=== PATIENT | male | born 1960 | race Caucasian/White ===

== ENCOUNTER 2024-04-07 09:15 | Emergency (ER) | payer MEDICARE, SELFPAY ==
[2024-04-07 09:24] VITALS: BP 135/79; PULSE 75; RESP 16; TEMP 36.1; O2SAT 95
--- NOTE | 2024-04-07 09:32 | ED.DENTAL ---
HPI - Dental/Oral General Chief complaint: Dental/Oral Stated complaint: Abscessed Tooth History of Present Illness HPI Narrative: Pt is a 64-year-old male who presents to urgent care with tooth pain. He reports his pain started two days and has progressively worsened. Pt endorses pain on the R gum/tooth in the back of his lower jaw and says his back 4th tooth (#29) is cracked. He denies any drainage, sore throat or fevers, but reports increased swelling in his mouth and on his R lower mandible. Pt reports he's been taking Ibuprofen 800mg PO for pain, which he reports has not helped relieve his pain. He currently does not have a dentist, as he is switching medical insurance companies. Pt endorses a history of high blood pressure, asthma and (cigar) tobacco use, but denies history of diabetes or CHF. Related Data Allergies Allergy/AdvReac Type Severity Reaction Status Date / Time Tetanus Vaccines and Toxoid Allergy Mild unknown Verified 04/07/24 09:28 tetanus and diphtheria Allergy Unknown unknown Verified 02/11/24 11:16 toxoids Review of Systems Review of Systems: All systems reviewed & are unremarkable except as noted in HPI and below PMFSH Past Medical History Medical History Asthma Social History Social History Smoking status: Former smoker Alcohol intake: never Do You Feel Safe in your Home?: Yes Lack of Transportation: YES Lack of Food: Never True Current Housing: I Have Housing Concerned About Future Housing: No Difficulty Paying Gas/Electric Bills: No Difficulty Paying for Meds: No Currently Unemployed: No Education: High School Diploma/GED Difficulty w/ Childcare or Family Care: No Exam Const: General: healthy appearing Nutritional Appearance: obese Orientation/consciousness: patient oriented x3 Limitations: no limitations HENMT: Head: normal to inspection Ears: external ears normal Face/Nose/Sinus: Normal external nose present Face and sinus: normal facial exam Mouth: Yes moist mucous membranes Teeth and gingiva: abnormal tooth and associated gingiva Throat: posterior oropharynx normal and uvula midline Other: Pt's R lower mandible is edematous and he endorses pain with palpation. There is mild redness and swelling on the inside of his R lower gums. Cracked tooth is not visible, nor is it loose with palpation. No visible drainage. Eyes: Conjunctivae: conjunctivae normal Direct Ophthalmoscopy: no photophobia Neck: Neck: normal visual inspection, no lymphadenopathy and no meningeal signs Chest: Chest palpation & inspection: normal inspection of the chest Resp: Effort & Inspection: normal respiratory effort Cardio: Rate: regular rate Rhythm: regular rhythm GI: Auscultation: normal bowel sounds Skin: General skin exam: normal color Rashes: no rashes Neuro: General: patient oriented x3 and moves all extremities Extrem: General: normal to inspection Psych: Mental Status: mental status grossly normal Course Course Level of Care: Express Care Visit Vital Signs Vital signs: Vital Signs Temperature 36.1 C L 04/07/24 09:24 Pulse Rate 75 04/07/24 09:24 Respiratory Rate 16 04/07/24 09:24 Blood Pressure 135/79 04/07/24 09:24 Pulse Oximetry 95 04/07/24 09:24 Temperature 36.1 C L 04/07/24 09:24 Pulse Rate 75 04/07/24 09:24 Respiratory Rate 16 04/07/24 09:24 Blood Pressure 135/79 04/07/24 09:24 Pulse Oximetry 95 04/07/24 09:24 MDM - Dental/Oral MDM Narrative Medical decision making narrative: Pt is a 64-year-old male who presents to urgent care with tooth pain. He reports his pain started two days and has progressively worsened. Pt endorses pain on the R gum/tooth in the back of his lower jaw and says his back 4th tooth (#29) is cracked. He denies any drainage, sore throat or fevers, but reports increased swelling in his mouth and on his R lower mandible. Pt reports he's been taking Ibuprofen 800mg PO for pain, which he reports has not helped relieve his pain. He currently does not have a dentist, as he is switching medical insurance companies. Pt endorses a history of high blood pressure, asthma and (cigar) tobacco use, but denies history of diabetes or CHF. Pt will be discharged home with a prescription for Clindamycin x 7 days and viscous lidocaine. Pt encouraged to continue using Ibuprofen OTC for pain as needed. He should establish care with a dentist as soon as possible. Pt verbalized understanding and is in agreement with plan. He should follow-up with his PCP if symptoms do not improve. Differential Diagnosis Differential diagnosis: Likely gingival abscess, dental caries, toothache, dental abscess and fracture of tooth Discharge Plan Discharge Clinical Impression: Dental abscess, Fracture of tooth Patient Disposition: Home, Self-Care Condition: Stable Instructions: Antibiotic Form, Dental Abscess (ED) Additional Instructions: Please present to the ER with worsening symptoms. Take all medications as prescribed. Please follow-up with your PCP in the next couple of days to ensure your infection is healing. Set up an appointment with a dentist as soon as possible. Prescriptions: New lidocaine HCl [Lidocaine Viscous] 2 % solution 1 applic mucous membrane QID PRN (Reason: tooth pain) Qty: 300 0RF clindamycin HCl 300 mg capsule 300 mg PO BID Qty: 14 0RF clindamycin HCl 300 mg capsule 300 mg PO BID Qty: 14 0RF lidocaine HCl [Lidocaine Viscous] 2 % solution 1 applic mucous membrane QID PRN (Reason: dental pain) Qty: 300 0RF clindamycin HCl 300 mg capsule 300 mg PO BID Qty: 14 0RF lidocaine HCl [Lidocaine Viscous] 2 % solution 1 applic mucous membrane QID PRN (Reason: pain) Qty: 300 0RF No Action clotrimazole-betamethasone 1-0.05 % cream See Rx Instructions .ROUTE .COMPLEX Qty: 45 0RF Rx Instructions: apply by topical route 2 times everyday for 2 weeks to the affected and surrounding areas of skin in am and evening; fluticasone propionate [Flonase Allergy Relief] 50 mcg/actuation spray,suspension 1 - 2 spray NASAL DAILY PRN (Reason: nasal congestion) Qty: 48 0RF Rx Instructions: administer into each nostril albuterol sulfate [ProAir HFA] 90 mcg/actuation HFA aerosol inhaler 2 puff INHALATION Q4-6H PRN (Reason: shortness of breath or wheezing) Qty: 27 2RF metoprolol succinate 50 mg tablet extended release 24 hr See Rx Instructions .ROUTE .COMPLEX Qty: 90 3RF Dose Instruction: Take 1 tablet by mouth once daily Rx Instructions: Take 1 tablet by mouth once daily amlodipine 10 mg tablet See Rx Instructions .ROUTE .COMPLEX Qty: 90 3RF Dose Instruction: Take 1 tablet by mouth once daily Rx Instructions: Take 1 tablet by mouth once daily hydrochlorothiazide 25 mg tablet See Rx Instructions .ROUTE .COMPLEX Qty: 90 3RF Dose Instruction: Take 1 tablet by mouth once daily Rx Instructions: Take 1 tablet by mouth once daily montelukast 10 mg tablet See Rx Instructions .ROUTE .COMPLEX Qty: 90 3RF Dose Instruction: TAKE 1 TABLET BY MOUTH ONCE DAILY IN THE EVENING Rx Instructions: TAKE 1 TABLET BY MOUTH ONCE DAILY IN THE EVENING ibuprofen 800 mg tablet See Rx Instructions .ROUTE .COMPLEX Qty: 90 2RF Dose Instruction: Take 1 tablet by mouth twice daily with food Rx Instructions: Take 1 tablet by mouth twice daily with food tamsulosin 0.4 mg capsule See Rx Instructions .ROUTE .COMPLEX Qty: 90 2RF Dose Instruction: Take 1 capsule by mouth once daily Rx Instructions: Take 1 capsule by mouth once daily amoxicillin 500 mg capsule 500 mg PO TID Qty: 30 0RF Follow-up/Referrals: PHYSICIAN,UNIVERSITY ADMINISTRATOR [Primary Care Provider] - Stand Alone Forms: Work/School Release IP Time of Disposition: 10:05
== END 2024-04-07 10:14 | disposition home or self-care (01) ==
PROVIDERS: Emergency Provider Registered Nurse
DX: K04.7 Periapical abscess without sinus (principal); S02.5XXA Fracture of tooth (traumatic), initial encounter for closed fracture; X58.XXXA Exposure to other specified factors, initial encounter; Z87.891 Personal history of nicotine dependence; J45.909 Unspecified asthma, uncomplicated; I10 Essential (primary) hypertension
CPT/HCPCS: 99213; G0463

== ENCOUNTER 2024-04-11 16:55 | Emergency (ER) | payer MEDICARE, SELFPAY ==
--- NOTE | ~2024-04-11 | XR_ITS ---
CHEST RADIOGRAPH, PA AND LATERAL CLINICAL HISTORY: Cough x 3 days, heaviness in chest abscessed tooth x 2 days . COMPARISON: 05/19/2006 TECHNIQUE: PA and lateral views of the chest. FINDINGS The cardiomediastinal silhouette is unremarkable. Peribronchial thickening is identified. The lungs are otherwise clear. Visualized osseous structures and soft tissues are unremarkable. IMPRESSION: Peribronchial thickening, without focal infiltrate or effusion. Reviewed, dictated and finalized at location [facility]
--- NOTE | 2024-04-11 16:57 | ED.URI ---
HPI - URI/Sore Throat General Chief Complaint: Upper Respiratory Infection Stated Complaint: Cough Time Seen by Provider: 04/11/24 17:23 Source: patient and RN notes reviewed Mode of arrival: ambulatory Limitations: no limitations History of Present Illness HPI Narrative: 64-year-old male history of asthma presents with concern for cough and chest congestion he has been taking amoxicillin for about 5 days for a tooth infection. He reports despite that he has been having cough, shortness of breath, chest congestion has been using his albuterol inhaler more often than usual. He reports he usually uses it once or twice a month and he has been using it several times daily. Reports when he lays down he coughs a lot. MD elicited complaint: cough Related Data Allergies Allergy/AdvReac Type Severity Reaction Status Date / Time Tetanus Vaccines and Toxoid Allergy Mild unknown Verified 04/11/24 16:59 tetanus and diphtheria Allergy Unknown unknown Verified 04/11/24 16:59 toxoids Review of Systems Review of Systems: CONSTITUTIONAL: Denies malaise, chills, sweats, or fever. EYES: Denies visual changes, redness, or discharge. ENT: Denies rhinorrhea, congestion, sinus pain, otalgia and sore throat. CARDIOVASCULAR: Denies chest pain, palpitations, or edema. RESPIRATORY: Reports cough, chest congestion, chest heaviness GASTROINTESTINAL: Denies abdominal pain, nausea, vomiting, diarrhea SKIN: Denies rash or itching. MUSCULOSKELETAL: Denies myalgia. NEUROLOGIC: Denies headache. All systems reviewed & are unremarkable except as noted in HPI and below PMFSH Past Medical History Medical History Asthma Social History Social History Smoking status: Former smoker Alcohol intake: never Do You Feel Safe in your Home?: Yes Lack of Transportation: YES Lack of Food: Never True Current Housing: I Have Housing Concerned About Future Housing: No Difficulty Paying Gas/Electric Bills: No Difficulty Paying for Meds: No Currently Unemployed: No Education: High School Diploma/GED Difficulty w/ Childcare or Family Care: No Comments At time of signature, agree with nursing past medical, surgical, social and family history. There is no relevant family history pertinent to the presenting complaint Exam Narrative: GENERAL: Well-appearing, well-nourished, and in no acute distress. HEAD: Normocephalic EYES: PERRLA, conjunctivae clear ENT: Nares clear. Mucous membranes moist. TM pearly salas with dull light reflex bilaterally; no tragal tenderness. Oropharynx not erythematous without lesions. Tonsils not enlarged and without exudate, no drooling, no hoarseness, no trismus, uvula midline. NECK: Supple. No lymphadenopathy CHEST: Scattered expiratory wheeze, breath sounds equal. No rhonchi, rales, or stridor. No respiratory distress, speaks in full sentences. HEART: Regular rate and rhythm. No murmur heard. SKIN: Warm, dry, no rash. NEURO: Alert and oriented x3. PSYCH: Normal mood and affect Course Course Emergency Course: Patient is aware of diagnosis, understands and agrees to treatment plan. Anticipatory guidance given. Patient agrees to follow-up as directed and is aware of reasons to seek care at the emergency department. Portions of this record may have been created with voice recognition software Level of Care: Express Care Visit Vital Signs Vital signs: Reviewed. MDM - URI/Sore Throat MDM Narrative Medical decision making narrative: Differential diagnosis considered: Jorge virus, strep pharyngitis, allergic rhinitis, upper respiratory tract infection, sinusitis, rhinosinusitis, nasopharyngitis. viral pharyngitis, otitis media, otitis externa, pneumonia, bronchitis, viral cough syndrome, viral syndrome, and influenza. Exam findings show no acute concerns or changes; patient is non-toxic appearing and is in no distress. Patient is appropriate for outpatient treatment and follow-up. Lab Data Attestation: I reviewed the patient's lab results. Imaging Data My impression: Images reviewed, interpreted by radiologist, agree, see report. Radiologist's impression: CHEST RADIOGRAPH, PA AND LATERAL CLINICAL HISTORY: Cough x 3 days, heaviness in chest abscessed tooth x 2 days . COMPARISON: 05/19/2006 TECHNIQUE: PA and lateral views of the chest. FINDINGS The cardiomediastinal silhouette is unremarkable. Peribronchial thickening is identified. The lungs are otherwise clear. Visualized osseous structures and soft tissues are unremarkable. IMPRESSION: Peribronchial thickening, without focal infiltrate or effusion. Critical Care Time Critical Care Time Critical Care Time: No Discharge Plan Discharge Clinical Impression: Asthma exacerbation Patient Disposition: Home, Self-Care Condition: Stable Instructions: Asthma (ED) Additional Instructions: Take medicines as directed. Stop Amoxicillin, start Augmentin Visit your primary care doctor if: You have wheezing, shortness of breath, or a cough even if taking medicine to prevent attacks. You have thickening of sputum. Your sputum changes from clear or white to yellow, green, salas, or bloody. You have any problems that may be related to the medicines you are taking (such as a rash, itching, swelling, or trouble breathing). You are using a reliever medicine more than 2 to 3 times per week. Visit the ER if: You are short of breath even at rest or when doing very little physical activity. You develop difficulty eating, drinking, or talking due to asthma symptoms. You have chest pain or you feel that your heart is beating fast. You are lightheaded, dizzy, faint or have bluish lips or fingernails. You have a fever or persistent symptoms for more than 2 to 3 days or symptoms suddenly get worse. You seem to be getting worse and are unresponsive to treatment during an asthma attack. Prescriptions: New prednisone 50 mg tablet 50 mg PO DAILY 5 Days Qty: 5 0RF amoxicillin-pot clavulanate 875-125 mg tablet 1 tablet PO Q12H 10 Days Qty: 20 0RF No Action lidocaine HCl [Lidocaine Viscous] 2 % solution 1 applic mucous membrane QID PRN (Reason: tooth pain) Qty: 300 0RF fluticasone propionate [Flonase Allergy Relief] 50 mcg/actuation spray,suspension 1 - 2 spray NASAL DAILY PRN (Reason: nasal congestion) Qty: 48 0RF Rx Instructions: administer into each nostril albuterol sulfate [ProAir HFA] 90 mcg/actuation HFA aerosol inhaler 2 puff INHALATION Q4-6H PRN (Reason: shortness of breath or wheezing) Qty: 27 2RF metoprolol succinate 50 mg tablet extended release 24 hr See Rx Instructions .ROUTE .COMPLEX Qty: 90 3RF Dose Instruction: Take 1 tablet by mouth once daily Rx Instructions: Take 1 tablet by mouth once daily amlodipine 10 mg tablet See Rx Instructions .ROUTE .COMPLEX Qty: 90 3RF Dose Instruction: Take 1 tablet by mouth once daily Rx Instructions: Take 1 tablet by mouth once daily hydrochlorothiazide 25 mg tablet See Rx Instructions .ROUTE .COMPLEX Qty: 90 3RF Dose Instruction: Take 1 tablet by mouth once daily Rx Instructions: Take 1 tablet by mouth once daily montelukast 10 mg tablet See Rx Instructions .ROUTE .COMPLEX Qty: 90 3RF Dose Instruction: TAKE 1 TABLET BY MOUTH ONCE DAILY IN THE EVENING Rx Instructions: TAKE 1 TABLET BY MOUTH ONCE DAILY IN THE EVENING ibuprofen 800 mg tablet See Rx Instructions .ROUTE .COMPLEX Qty: 90 2RF Dose Instruction: Take 1 tablet by mouth twice daily with food Rx Instructions: Take 1 tablet by mouth twice daily with food tamsulosin 0.4 mg capsule See Rx Instructions .ROUTE .COMPLEX Qty: 90 2RF Dose Instruction: Take 1 capsule by mouth once daily Rx Instructions: Take 1 capsule by mouth once daily amoxicillin 500 mg capsule 500 mg PO TID Qty: 30 0RF Follow-up/Referrals: Gunner Wilson MD [Primary Care Provider] - Stand Alone Forms: Work/School Release IP Time of Disposition: 17:29
[2024-04-11 17:05] VITALS: BP 131/81; PULSE 92; RESP 19; TEMP 36.4; O2SAT 95
== END 2024-04-11 17:35 | disposition home or self-care (01) ==
PROVIDERS: Emergency Provider Nurse Practitioner; PCP Emergency Medicine
DX: J45.901 Unspecified asthma with (acute) exacerbation (principal); Z87.891 Personal history of nicotine dependence
CPT/HCPCS: 71046; 99213; G0463

== ENCOUNTER 2025-01-19 15:33 | Inpatient (IN) | payer MEDICARE, SELFPAY ==
[2025-01-19] VITALS (27 sets, daily range): BP systolic 125–150; BP diastolic 71–91; PULSE 80–108; RESP 11–37; TEMP 36.4–36.6; O2SAT 90–100
--- NOTE | ~2025-01-19 | CT_ITS ---
EXAMINATION: CTA BRAIN/CAROTID DATE: 01/19/2025 20:12 INDICATION: Vertigo TECHNIQUE: Computed tomographic angiography (CTA) of the head and neck was performed with 100 mL Omnipaque-350 intravenous contrast. Multiplanar reconstructions and maximum intensity projection 3D-reconstructions of the carotid arteries and of the intracranial arteries were created by the technologist on a separate workstation. Precontrast CT of the head was also obtained. Automated exposure control and iterative reconstruction technique were employed.The dose-length product was 1935.14 mGy-cm. COMPARISON: None. FINDINGS: Head: No acute intracranial hemorrhage, acute infarction or abnormal extra axial fluid collection. There is mild scattered white matter hypoattenuation consistent with chronic small vessel ischemic disease. Ventricles are normal and symmetric. No mass/mass effect. No abnormally enhancing brain lesions on the postcontrast imaging. The orbits, paranasal sinuses and mastoid air cells are normal. Intracranial arteries Vertebral arteries are codominant. Small amount of nonhemodynamically significant atherosclerotic plaque at the bilateral carotid siphons. There is no hemodynamically significant stenosis in the vertebral, basilar and internal carotid arteries. The right P1 and bilateral A1 segments are patent. The left posterior cerebral artery supplied from the left internal carotid artery via a patent left posterior communicating artery. There is also a tiny right posterior communicating artery. There are no aneurysms identified. Cerebral arterial arborization appears symmetric. Carotid arteries: The aortic arch and the great vessels arising from the arch are normal in caliber with no dissection or hemodynamically significant stenosis. There is no evident atherosclerotic plaque with 0% stenosis of the right and left carotid bulbs relative to normal distal artery lumen diameter (NASCET criteria). Mild emphysema in the visualized upper lungs. Cervical soft tissues are unremarkable. Moderate to severe cervical spondylosis.. IMPRESSION: 1. No evident atherosclerotic plaque with 0% stenosis of the right and left carotid bulbs relative to normal distal artery lumen diameter (NASCET criteria). 2. Unremarkable cerebral CT angiogram with no hemodynamically significant stenosis, aneurysm or thrombosis. 3. Mild scattered white matter hypoattenuation consistent with chronic small vessel ischemic disease. No acute intracranial process. Reviewed, dictated and finalized at location A. IMPRESSION: 1. No evident atherosclerotic plaque with 0% stenosis of the right and left car otid bulbs relative to normal distal artery lumen diameter (NASCET criteria). 2. Unremarkable cerebral CT angiogram with no hemodynamically significant steno sis, aneurysm or thrombosis. 3. Mild scattered white matter hypoattenuation consistent with chronic small ve ssel ischemic disease. No acute intracranial process.
--- NOTE | ~2025-01-19 | MR_ITS ---
EXAMINATION: MR brain/brain stem wo con DATE: 01/20/2025 10:38 INDICATION: Stroke with dizziness for several days and leaning to the left side TECHNIQUE: Magnetic resonance imaging (MRI) of the brain and brainstem was performed without intravenous contrast. Sequences included sagittal and axial T1-weighted SE, axial diffusion-weighted FS SE, axial 3D SWAN, axial T2-weighted FLAIR, and axial T2-weighted FSE. Postcontrast axial and coronal T1-weighted SE was obtained. Apparent diffusion coefficient (ADC) maps were created. COMPARISON: CT dated FINDINGS: Region of restricted diffusion with associated increased T2 signal involving a significant portion of the right cerebellar hemisphere consistent with acute infarct. There is some associated mass effect with effacement of the sulci of the affected portion of the right cerebral hemisphere. No intracranial hemorrhage or abnormal intracranial mass lesion. There are additional scattered areas of nonspecific increased T2-weighted signal intensity in the cerebral white matter, predominantly involving the deep and periventricular white matter. There are no intraparenchymal signal abnormalities seen on the other pulse sequences. The ventricles are symmetric and normal in size. There are no abnormal extra-axial fluid collections. Flow voids are seen in the cerebral arteries on the T2-weighted sequences consistent with their expected patency. Mild mucosal thickening the bilateral ethmoid and maxillary sinuses. Visualized orbits and soft tissues are unremarkable. IMPRESSION: 1. Acute right cerebellar infarct. 2. Additional scattered nonspecific periventricular predominant white matter T2 hyperintensity consistent with chronic small vessel ischemic disease. Reviewed, dictated and finalized at location A.
--- NOTE | ~2025-01-19 | MR_ITS ---
EXAMINATION: MR brain/brain stem wo con DATE: 01/25/2025 15:51 INDICATION: Follow-up cerebellar edema TECHNIQUE: Magnetic resonance imaging (MRI) of the brain and brainstem was performed without intravenous contrast. Sequences included sagittal and axial T1-weighted SE, axial diffusion-weighted FS SE, axial 3D SWAN, axial T2-weighted FLAIR, and axial T2-weighted FSE. Apparent diffusion coefficient (ADC) maps were created. COMPARISON: Brain MR dated 01/20/2025 FINDINGS: No change in a large region of restricted diffusion with associated increased T2 signal consistent with cytotoxic edema involving significant portion of the right cerebellar hemisphere consistent with evolving now early subacute infarct. There is been no appreciable interval change in the mass effect with effacement of the sulci of the affected portion of the right cerebral hemisphere. Inferior to the level of the fourth ventricle the anteromedial aspect of the inferior left cerebellar hemisphere bulges slightly across the midline with unchanged mild mass effect upon the right posterior aspect of the medulla and inferior cerebellar peduncle with slight leftward shift of the fourth ventricle. The ce rebellar tonsil however remains above the level of the foramen magnum. There are no new areas of restricted diffusion to suggest acute infarction. No intracranial hemorrhage or other abnormal intracranial mass lesion. Unchanged pattern of scattered nonspecific increased T2-weighted signal intensity in the cerebral white matter, predominantly involving the deep and periventricular white matter. There are no intraparenchymal signal abnormalities seen on the other pulse sequences. The ventricles are symmetric and normal in size. There are no abnormal extra-axial fluid collections. Flow voids are seen in the cerebral arteries on the T2-weighted sequences consistent with their expected patency. Visualized orbits and soft tissues are unremarkable. Mild mucosal thickening bilateral ethmoid sinuses. IMPRESSION: 1. Early subacute right cerebellar infarct with no significant interval change in local mass effect resulting from the associated cytotoxic edema. Reviewed, dictated and finalized at location A.
--- NOTE | ~2025-01-19 | XR_ITS ---
EXAMINATION: XR chest 2V, 01/19/2025 17:45 CDT HISTORY: dizzy COMPARISON: No comparisons available. Technique: 2 views obtained. Findings: The lungs are clear, no effusion. No pneumothorax. Heart is normal size. Mediastinal and hilar contours are within normal limits. Bony thorax no acute abnormality. Impression: No acute cardiopulmonary abnormality. Reviewed, dictated and finalized at location A. Impression: No acute cardiopulmonary abnormality.
--- NOTE | 2025-01-19 17:28 | ECG_ITS ---
Test Date: 2025-01-19 17:38:23 Measurements Intervals [place] Rate: 83 P: 20 OR: 180 QRS: 18 QRSD: 83 T: 41 QT: 375 QTc: 443 Interpretive Statements SINUS RHYTHM CONSIDER ANTERIOR INFARCT, AGE INDETERMINATE CONSIDER INFERIOR INFARCT, AGE INDETERMINATE BASELINE ARTIFACT- I, II, III, AVR, AVF ABNORMAL ECG No previous ECG available for comparison Electronically Signed On 01-19-2025 19:35:07 CDT by Carlos Hogan D.O.
[2025-01-19 18:30] LABS: Hematocrit 50.9 % (42.0-52.0); Hemoglobin 16.9 g/dL (14.0-18.0); Immature Granulocyte Percent A 0.4 % (0-0.5); Lymphocytes Absolute Auto 0.79 K/mm3 (0.9-3.2); Mean Corpuscular HGB Conc 33.2 g/dl (32-36); Mean Corpuscular Hemoglobin 31.2 pg (26-34); Mean Corpuscular Volume 94.1 fl (80-100); Nucleated Red Blood Cells Absolute Auto 0.000 K/mm3 (0.0-0.012); Nucleated Red Blood Cells Perc 0.0 % (0.0-0.2); Platelet Count Result 227 k/mm3 (150-375); Red Blood Count 5.41 M/mm3 (4.6-6.20); White Blood Count 10.4 K/mm3 (4.5-10.0)
[2025-01-19 18:39] LABS: Alanine Aminotransferase 42 U/L (6-50); Albumin Level 4.6 g/dL (3.5-5.1); Alkaline Phosphatase 74 U/L (38-126); Anion Gap 11 mmol/L (4-12); Aspartate Amino Transferase 41 U/L (17-59); Bilirubin,Total 0.8 mg/dL (0.2-1.3); Blood Urea Nitrogen 21 mg/dL (9-20); Calcium 9.0 mg/dL (8.4-10.2); Carbon Dioxide 28 mmol/L (22-30); Chloride 101 mmol/L (98-107); Estimated CRCL calculation 96 ml/min; Estimated Glomerular Filt Rate > 60; Glucose 124 mg/dL (65-110); Potassium 3.4 mmol/L (3.4-5.0); Sodium 140 mmol/L (137-145); Total Protein 8.2 g/dL (6.3-8.2)
--- NOTE | 2025-01-19 19:24 | ED_ITS ---
HPI - General Adult General Chief complaint: Dizziness Stated complaint: dizzy, vomiting Time Seen by Provider: 01/19/25 19:04 Related Data Allergies Allergy/AdvReac Type Severity Reaction Status Date / Time Tetanus Vaccines and Toxoid Allergy Mild unknown Verified 01/19/25 17:29 tetanus and diphtheria Allergy Unknown unknown Verified 01/19/25 17:29 toxoids PMFSH Past Medical History Medical History Asthma Social History Social History Smoking status: Former smoker Alcohol intake: never Do You Feel Safe in your Home?: Yes Lack of Transportation: YES Lack of Food: Never True Current Housing: I Have Housing Concerned About Future Housing: No Difficulty Paying Gas/Electric Bills: No Difficulty Paying for Meds: No Currently Unemployed: No Education: High School Diploma/GED Difficulty w/ Childcare or Family Care: No Course Vital Signs Vital signs: Vital Signs Temperature 97.6 F 01/19/25 15:34 Pulse Rate 88 01/19/25 15:34 Respiratory Rate 18 01/19/25 15:34 Blood Pressure 136/78 01/19/25 15:34 Pulse Oximetry 92 01/19/25 15:34 Oxygen Delivery Room Air 01/19/25 15:34 Temperature 97.6 F 01/19/25 15:34 Pulse Rate 87 01/19/25 19:00 Respiratory Rate 32 H 01/19/25 19:00 Blood Pressure 130/91 H 01/19/25 18:50 Pulse Oximetry 100 01/19/25 19:00 Oxygen Delivery Room Air 01/19/25 17:29 Medical Decision Making Vital Signs Vital Signs: Vital Signs Temperature 97.6 F 01/19/25 15:34 Pulse Rate 88 01/19/25 15:34 Respiratory Rate 18 01/19/25 15:34 Blood Pressure 136/78 01/19/25 15:34 Pulse Oximetry 92 01/19/25 15:34 Oxygen Delivery Room Air 01/19/25 15:34 Temperature 97.6 F 01/19/25 15:34 Pulse Rate 87 01/19/25 19:00 Respiratory Rate 32 H 01/19/25 19:00 Blood Pressure 130/91 H 01/19/25 18:50 Pulse Oximetry 100 01/19/25 19:00 Oxygen Delivery Room Air 01/19/25 17:29 Lab Data 01/19/25 18:19 01/19/25 18:19 Labs: Lab Results 01/19/25 Range/Units 18:19 WBC 10.4 H (4.5-10.0) K/mm3 RBC 5.41 (4.6-6.20) M/mm3 Hgb 16.9 (14.0-18.0) g/dL Hct 50.9 (42.0-52.0) % MCV 94.1 (80-100) fl MCH 31.2 (26-34) pg MCHC 33.2 (32-36) g/dl RDW 13.7 (11.5-14.5) % Plt Count 227 (150-375) k/mm3 MPV 11.0 H (7.4-10.4) fl Immature Gran % (Auto) 0.4 (0-0.5) % Neut % (Auto) 88.1 H (45.5-73.1) % Lymph % (Auto) 7.6 L (18.3-44.2) % [place] % (Auto) 3.8 (2.6-8.5) % Eos % (Auto) 0.0 (0-4.4) % Baso % (Auto) 0.1 L (0.2-1.2) % Lymph # (Auto) 0.79 L (0.9-3.2) K/mm3 [place] # (Auto) 0.4 (0.1-0.6) K/mm3 Eos # (Auto) 0.0 (0-0.3) K/mm3 Baso # (Auto) 0.0 (0.0-0.1) K/mm3 Abs Immat Gran (auto) 0.04 H (0.00-0.031) K/mm3 Absolute Neuts (auto) 9.2 H (1.3-6.7) K/mm3 Absolute Nucleated RBC 0.000 (0.0-0.012) K/mm3 Nucleated RBC % 0.0 (0.0-0.2) % Sodium 140 (137-145) mmol/L Potassium 3.4 (3.4-5.0) mmol/L Chloride 101 (98-107) mmol/L Carbon Dioxide 28 (22-30) mmol/L Anion Gap 11 (4-12) mmol/L BUN 21 H (9-20) mg/dL Creatinine 0.82 (0.7-1.3) mg/dL Estim Creat Clear Calc 96 ml/min Estimated GFR > 60 (59 - ) Glucose 124 H (65-110) mg/dL Calcium 9.0 (8.4-10.2) mg/dL Total Bilirubin 0.8 (0.2-1.3) mg/dL AST 41 (17-59) U/L ALT 42 (6-50) U/L Alkaline Phosphatase 74 (38-126) U/L Total Protein 8.2 (6.3-8.2) g/dL Albumin 4.6 (3.5-5.1) g/dL Discharge Plan Discharge Patient Language: [place] Citizen Prescriptions: No Action fluticasone propionate [Flonase Allergy Relief] 50 mcg/actuation spray,suspension 1 - 2 spray NASAL DAILY PRN (Reason: nasal congestion) Qty: 48 0RF Rx Instructions: administer into each nostril albuterol sulfate [ProAir HFA] 90 mcg/actuation HFA aerosol inhaler 2 puff INHALATION Q4-6H PRN (Reason: shortness of breath or wheezing) Qty: 27 2RF metoprolol succinate 50 mg tablet extended release 24 hr See Rx Instructions .ROUTE .COMPLEX Qty: 90 2RF Dose Instruction: Take 1 tablet by mouth once daily Rx Instructions: Take 1 tablet by mouth once daily amlodipine 10 mg tablet See Rx Instructions .ROUTE .COMPLEX Qty: 90 2RF Dose Instruction: Take 1 tablet by mouth once daily Rx Instructions: Take 1 tablet by mouth once daily montelukast 10 mg tablet See Rx Instructions .ROUTE .COMPLEX Qty: 90 2RF Dose Instruction: TAKE 1 TABLET BY MOUTH ONCE DAILY IN THE EVENING Rx Instructions: TAKE 1 TABLET BY MOUTH ONCE DAILY IN THE EVENING hydrochlorothiazide 25 mg tablet See Rx Instructions .ROUTE .COMPLEX Qty: 90 2RF Dose Instruction: Take 1 tablet by mouth once daily Rx Instructions: Take 1 tablet by mouth once daily ibuprofen 800 mg tablet See Rx Instructions .ROUTE .COMPLEX Qty: 90 2RF Dose Instruction: Take 1 tablet by mouth twice daily with food Rx Instructions: Take 1 tablet by mouth twice daily with food tamsulosin 0.4 mg capsule See Rx Instructions .ROUTE .COMPLEX Qty: 90 2RF Dose Instruction: Take 1 capsule by mouth once daily Rx Instructions: Take 1 capsule by mouth once daily Follow-up/Referrals: Gunner Wilson MD [Primary Care Provider, Internal Medicine]
--- NOTE | 2025-01-19 19:24 | PC.NURSE ---
Report received from BENNIE Germain. Assumed care of patient at this time.
--- NOTE | 2025-01-19 19:26 | ED.GENADULT ---
HPI - General Adult General Chief complaint: Dizziness Stated complaint: dizzy, vomiting Time Seen by Provider: 01/19/25 19:04 History of Present Illness HPI narrative: This is a 64-year-old male presenting ED with chief complaint of dizziness and nausea and vomiting. Symptoms started on Wednesday and were intermittent with short bouts of dizziness. They tended to resolve after several minutes. They were not associated with double vision, dysarthria dysphagia loss of coordination. Symptoms started to get worse on and the vomiting became more profuse. He is not eating or drinking very much since then due to vomiting. He has had 2 falls over due to dizziness last 2 days although he did not strike his head or sustain any injuries. Symptoms completely resolved in between bouts. Patient denies headache, fevers, chest pain, difficulty breathing, abdominal pain diarrhea or urinary symptoms. Related Data Allergies Allergy/AdvReac Type Severity Reaction Status Date / Time Tetanus Vaccines and Toxoid Allergy Mild unknown Verified 01/19/25 17:29 tetanus and diphtheria Allergy Unknown unknown Verified 01/19/25 17:29 toxoids PMFSH Past Medical History Medical History Asthma Social History Social History Smoking status: Former smoker Alcohol intake: never Do You Feel Safe in your Home?: Yes Lack of Transportation: YES Lack of Food: Never True Current Housing: I Have Housing Concerned About Future Housing: No Difficulty Paying Gas/Electric Bills: No Difficulty Paying for Meds: No Currently Unemployed: No Education: High School Diploma/GED Difficulty w/ Childcare or Family Care: No Exam Narrative: APPEARANCE: No apparent distress. Head: Tympanic membranes are normal bilaterally, no cerumen impaction EYES: EOMI, NOSE: Atraumatic NECK: Trachea midline RESPIRATORY: No increased rate of breathing clear to auscultation CARDIOVASCULAR: RRR, no peripheral edema ABDOMINAL: Non-distended soft nontender MUSCULOSKELETAl: No obvious deformities NEURO: Alert. Cranial nerves 2-12 grossly intact. Sensation light touch, motor function cerebellar function intact for 4 extremities. Gait exam was deferred till after treatment. SKIN:: Warm, dry. Normal color PSYCHIATRIC: Normal affect Course Vital Signs Vital signs: Vital Signs Temperature 97.6 F 01/19/25 15:34 Pulse Rate 88 01/19/25 15:34 Respiratory Rate 18 01/19/25 15:34 Blood Pressure 136/78 01/19/25 15:34 Pulse Oximetry 92 01/19/25 15:34 Oxygen Delivery Room Air 01/19/25 15:34 Temperature 97.6 F 01/19/25 15:34 Pulse Rate 88 01/19/25 21:15 Respiratory Rate 16 01/19/25 21:15 Blood Pressure 145/79 H 01/19/25 21:02 Pulse Oximetry 99 01/19/25 21:02 Oxygen Delivery Room Air 01/19/25 17:29 Medical Decision Making MDM Narrative Medical decision making narrative: -Course: 64-year-old male presenting with progressively worse dizziness over the last several days. Neurologic exam is normal. Ear exam is normal. Symptoms still completely resolved between bouts and he does not have any double vision dysphagia dysarthria or loss of coordination which is reassuring. Patient is dehydrated as he has not been eating or drinking well also given some fluids,. He also be given antiemetics and anti vertiginous medication. CTA and screening lab work obtained. Laboratory studies within normal limits. CTA head and neck not reveal any acute findings. Chest x-ray clear. EKG without ischemic changes. [place]-Hallpike did not elicit the vertigo symptoms when the patient was laying back. He did have some dizziness when going from laying to standing up. No associated nystagmus. No vital sign changes indicate orthostatic dizziness. Patient noted improvement with meclizine scopolamine and fluids. However I tried to ambulate the patient and he is still unsteady with leftward lean. Patient will need admission. Case was discussed Dr. Mann. Patient be admitted hospital for further management. -DDX includes but is not limited to: BPPV, CVA, dehydration vestibular neuritis Vital Signs Vital Signs: Vital Signs Temperature 97.6 F 01/19/25 15:34 Pulse Rate 88 01/19/25 15:34 Respiratory Rate 18 01/19/25 15:34 Blood Pressure 136/78 01/19/25 15:34 Pulse Oximetry 92 01/19/25 15:34 Oxygen Delivery Room Air 01/19/25 15:34 Temperature 97.6 F 01/19/25 15:34 Pulse Rate 88 01/19/25 21:15 Respiratory Rate 16 01/19/25 21:15 Blood Pressure 145/79 H 01/19/25 21:02 Pulse Oximetry 99 01/19/25 21:02 Oxygen Delivery Room Air 01/19/25 17:29 Lab Data 01/19/25 18:19 01/19/25 18:19 Labs: Lab Results 01/19/25 01/19/25 Range/Units 18:19 21:16 WBC 10.4 H (4.5-10.0) K/mm3 RBC 5.41 (4.6-6.20) M/mm3 Hgb 16.9 (14.0-18.0) g/dL Hct 50.9 (42.0-52.0) % MCV 94.1 (80-100) fl MCH 31.2 (26-34) pg MCHC 33.2 (32-36) g/dl RDW 13.7 (11.5-14.5) % Plt Count 227 (150-375) k/mm3 MPV 11.0 H (7.4-10.4) fl Immature Gran % (Auto) 0.4 (0-0.5) % Neut % (Auto) 88.1 H (45.5-73.1) % Lymph % (Auto) 7.6 L (18.3-44.2) % [place] % (Auto) 3.8 (2.6-8.5) % Eos % (Auto) 0.0 (0-4.4) % Baso % (Auto) 0.1 L (0.2-1.2) % Lymph # (Auto) 0.79 L (0.9-3.2) K/mm3 [place] # (Auto) 0.4 (0.1-0.6) K/mm3 Eos # (Auto) 0.0 (0-0.3) K/mm3 Baso # (Auto) 0.0 (0.0-0.1) K/mm3 Abs Immat Gran (auto) 0.04 H (0.00-0.031) K/mm3 Absolute Neuts (auto) 9.2 H (1.3-6.7) K/mm3 Absolute Nucleated RBC 0.000 (0.0-0.012) K/mm3 Nucleated RBC % 0.0 (0.0-0.2) % Sodium 140 (137-145) mmol/L Potassium 3.4 (3.4-5.0) mmol/L Chloride 101 (98-107) mmol/L Carbon Dioxide 28 (22-30) mmol/L Anion Gap 11 (4-12) mmol/L BUN 21 H (9-20) mg/dL Creatinine 0.82 (0.7-1.3) mg/dL Estim Creat Clear Calc 96 ml/min Estimated GFR > 60 (59 - ) Glucose 124 H (65-110) mg/dL Calcium 9.0 (8.4-10.2) mg/dL Total Bilirubin 0.8 (0.2-1.3) mg/dL AST 41 (17-59) U/L ALT 42 (6-50) U/L Alkaline Phosphatase 74 (38-126) U/L Troponin I < 0.012 < 0.012 (0.000-0.034) ng/mL Total Protein 8.2 (6.3-8.2) g/dL Albumin 4.6 (3.5-5.1) g/dL Discharge Plan Discharge Clinical Impression: Dizziness, Dehydration Patient Disposition: Still a Patient Condition: Stable Patient Language: Mongolian Prescriptions: No Action fluticasone propionate [Flonase Allergy Relief] 50 mcg/actuation spray,suspension 1 - 2 spray NASAL DAILY PRN (Reason: nasal congestion) Qty: 48 0RF Rx Instructions: administer into each nostril albuterol sulfate [ProAir HFA] 90 mcg/actuation HFA aerosol inhaler 2 puff INHALATION Q4-6H PRN (Reason: shortness of breath or wheezing) Qty: 27 2RF metoprolol succinate 50 mg tablet extended release 24 hr See Rx Instructions .ROUTE .COMPLEX Qty: 90 2RF Dose Instruction: Take 1 tablet by mouth once daily Rx Instructions: Take 1 tablet by mouth once daily amlodipine 10 mg tablet See Rx Instructions .ROUTE .COMPLEX Qty: 90 2RF Dose Instruction: Take 1 tablet by mouth once daily Rx Instructions: Take 1 tablet by mouth once daily montelukast 10 mg tablet See Rx Instructions .ROUTE .COMPLEX Qty: 90 2RF Dose Instruction: TAKE 1 TABLET BY MOUTH ONCE DAILY IN THE EVENING Rx Instructions: TAKE 1 TABLET BY MOUTH ONCE DAILY IN THE EVENING hydrochlorothiazide 25 mg tablet See Rx Instructions .ROUTE .COMPLEX Qty: 90 2RF Dose Instruction: Take 1 tablet by mouth once daily Rx Instructions: Take 1 tablet by mouth once daily ibuprofen 800 mg tablet See Rx Instructions .ROUTE .COMPLEX Qty: 90 2RF Dose Instruction: Take 1 tablet by mouth twice daily with food Rx Instructions: Take 1 tablet by mouth twice daily with food tamsulosin 0.4 mg capsule See Rx Instructions .ROUTE .COMPLEX Qty: 90 2RF Dose Instruction: Take 1 capsule by mouth once daily Rx Instructions: Take 1 capsule by mouth once daily Follow-up/Referrals: Gunner Wilson MD [Primary Care Provider, Internal Medicine]
[2025-01-19] MEDS: SCOPOLAMINE 1 MG PATCH 1 PATCH TRANSDERM (19:50)
[2025-01-19] MEDS: MECLIZINE HCL 25 MG TABLET PO (19:50)
[2025-01-19] MEDS: ONDANSETRON INJ 4 MG/2 ML VIAL IV PUSH (19:50)
[2025-01-19] MEDS: SODIUM CHLORIDE 0.9% IV 2,000 ML 999 ML IV CONT (19:50)
--- NOTE | 2025-01-19 19:55 | PC.NURSE ---
Patient taken to CT via stretcher at this time.
[2025-01-19 21:13] LABS: Troponin I < 0.012 ng/mL (0.000-0.034)
--- NOTE | 2025-01-19 21:15 | PC.NURSE ---
Patient states I am feeling a little better now.
[2025-01-19 21:53] LABS: Troponin I < 0.012 ng/mL (0.000-0.034)
[2025-01-19] MEDS: METOCLOPRAMIDE HCL INJ 10 MG/2 ML VIAL IV PUSH (22:39)
[2025-01-20] VITALS (11 sets, daily range): BP systolic 114–145; BP diastolic 58–91; PULSE 71–90; RESP 16–22; TEMP 36.6–37.2; O2SAT 92–96; BMI 35.4
--- NOTE | 2025-01-20 00:19 | ADMGEN ---
This patient, Donald Jain, was admitted to [facility] Surg Room 304-02. Patient/family oriented to hospital policies and general routines including ID bracelet, bed and alarms, visiting hours, pain management, procedures, bathroom and other care routines, personal items, smoking policy, room service/diet, and visiting hours. Information on how to activate the Rapid Response Team has been discussed. Patient/Family are encouraged to report perceived risks to care and to ask questions if they do not understand what they are told or what they should do.
[2025-01-20] MEDS: MONTELUKAST SODIUM 10 MG TABLET PO (07:47)
--- NOTE | 2025-01-20 09:27 | P.HP_ITS ---
H&P: HPI History of Present Illness Date/Time: 01/20/25 09:27 Chief Complaint: nausea and dry heaves vertiginous sign unsteady Narrative: Donald Jain is a 64 year old male with pmhx of hypertension, and BPH who presents with nausea and dry heaving associated with vertiginous side and since 01/17. patient reports he is unsteady with his balance, leaning forward, backward and to the side. He started feeling nauseous proceeded with room spinning. any head movement, sitting up or getting up will exacerbate his symptoms. he denies any upper respiratory infection recently. he denies u sing loop diuretics or aspirin. she has never had this kind of symptoms before. he denies history of stroke or seizure or vertigo. In the ED, vital sign was normal. white count slightly elevated. BMP was unremarkable. troponin was negative x2. CT CTA head and neck was negative for stenosis. only noted mild scattered white matter hypoattenuation consistent with chronic small-vessel ischemic disease. chest x-ray was negative for consolidation /infiltrate / cardiac silhouette change. his symptoms improved with meclizine, scopolamine and IV fluids. ED physician performed Belinda-Hallpike man over which did not elicit the vertigo symptom when the patient was lying back. reported dizziness when going fromlying to standing up. [facility] Past Medical History Medical History Asthma Social History Social History Smoking packs per day: 0.5 Smoking cigarettes per day: 10.0 Years smoked: 20 Smoking pack-years: 10.00 Smoking status: Current some day smoker Tobacco type: cigarettes Alcohol intake: never Substance use: never Do You Feel Safe in your Home?: Yes Lack of Transportation: No Lack of Food: Never True Current Housing: I Have Housing Concerned About Future Housing: No Difficulty Paying Gas/Electric Bills: No Difficulty Paying for Meds: No Currently Unemployed: No Education: Associate Degree Difficulty w/ Childcare or Family Care: No Spiritual care concerns: No Meds Home Medications and Allergies Home Medications ?Medication ?Instructions ?Recorded ?Confirmed ?Type albuterol sulfate 90 mcg/actuation 2 puff inhalation Q 4-6H PRN 03/23/22 01/20/25 Rx aerosol inhaler (ProAir HFA) shortness of breath or wh eezing #27 grams fluticasone propionate 50 1 - 2 spray intranasal DAILY PRN 02/11/24 01/20/25 Rx mcg/actuation nasal nasal congestion #48 grams spray,suspension (Flonase Allergy Relief) amlodipine 10 mg tablet See Rx Instructions .Route 0 08/14/24 01/20/25 Rx .COMPLEX #90 tabs hydrochlorothiazide 25 mg tablet See Rx Instructions . Route 08/14/24 01/20/25 Rx .COMPLEX #90 tabs metoprolol succinate 50 mg See Rx Instructions .Route 08/14/24 01/20/25 Rx tablet,extended release 24 hr .COMPLEX #90 tabs ibuprofen 800 mg tablet See Rx Instructions .Route 0 10/25/24 01/20/25 Rx .COMPLEX #90 tabs tamsulosin 0.4 mg capsule See Rx Instructions .Route 0 12/25/24 01/20/25 Rx .COMPLEX #90 caps loratadine 10 mg tablet (Claritin) 10 mg PO DAILY 12/2401/20/25 History montelukast 10 mg tablet 10 mg PO QAM 01/20/25 History Allergies Allergy/AdvReac Type Severity Reaction Status Date / Time Tetanus Vaccines and Toxoid Allergy Mild unknown Verified 01/19/25 17:29 tetanus and diphtheria Allergy Unknown unknown Verified 01/19/25 17:29 toxoids Vital Signs Vital Signs - 24 hr 01/19/25 15:34 01/19/25 17:15 01/19/25 17:29 Temperature 36.4 C Pulse Rate 88 108 H 98 Respiratory Rate 18 22 H 20 Blood Pressure 136/78 Pulse Oximetry 92 96 Oxygen Delivery Room Air Room Air 01/19/25 17:30 01/19/25 17:52 01/19/25 18:00 Temperature Pulse Rate 94 93 80 Respiratory Rate 19 37 H 35 H Blood Pressure Pulse Oximetry 98 99 100 Oxygen Delivery 01/19/25 18:15 01/19/25 18:22 01/19/25 18:30 Temperature Pulse Rate 97 93 85 Respiratory Rate 18 34 H Blood Pressure Pulse Oximetry 100 95 Oxygen Delivery 01/19/25 18:45 01/19/25 18:50 01/19/25 19:00 Temperature Pulse Rate 93 89 87 Respiratory Rate 15 16 32 H Blood Pressure 130/91 H Pulse Oximetry 98 100 100 Oxygen Delivery 01/19/25 19:02 01/19/25 19:15 01/19/25 19:17 Temperature Pulse Rate 81 96 101 H Respiratory Rate 31 H 20 22 H Blood Pressure 137/79 125/83 Pulse Oximetry 99 Oxygen Delivery 01/19/25 19:30 01/19/25 19:45 01/19/25 19:51 Temperature Pulse Rate 92 90 99 Respiratory Rate 11 L 13 14 Blood Pressure 148/89 H Pulse Oximetry 98 Oxygen Delivery 01/19/25 20:10 01/19/25 20:12 01/19/25 20:17 Temperature Pulse Rate 95 94 Respiratory Rate 36 H 28 H Blood Pressure 149/80 H 141/75 H Pulse Oximetry 92 90 98 Oxygen Delivery 01/19/25 20:32 01/19/25 20:47 01/19/25 21:00 Temperature Pulse Rate 83 86 82 Respiratory Rate 30 H 29 H 33 H Blood Pressure 145/78 H 134/72 Pulse Oximetry 95 97 99 Oxygen Delivery 01/19/25 21:02 01/19/25 21:15 01/19/25 23:59 Temperature 36.6 C Pulse Rate 95 88 90 Respiratory Rate 22 H 16 20 Blood Pressure 145/79 H 150/71 H Pulse Oximetry 99 96 Oxygen Delivery 01/20/25 01:00 01/20/25 01:05 01/20/25 04:00 Temperature 37.0 C Pulse Rate 82 81 Respiratory Rate 16 Blood Pressure 127/76 Pulse Oximetry 93 Oxygen Delivery Room Air 01/20/25 04:00 01/20/25 07:50 01/20/25 07:50 Temperature 37.1 C Pulse Rate 83 Respiratory Rate 20 Blood Pressure 144/64 H Pulse Oximetry Oxygen Delivery Room Air Exam Narrative: APPEARANCE: sleep in the bed, obese EYES: EOMI HEENT: Normocephalic, atraumatic, OMM RESPIRATORY: No respiratory distress Clear to auscultation bilaterally with no rhonchi wheezing or rales. CARDIOVASCULAR: RRR, S1 and S2 without murmurs rubs or gallops. ABDOMINAL: BIg body habitus, Soft, nontender, nondistended, no rebound or guarding MSK: range of motion and motor strength intact while lying on bed. NEURO: Awake and alert. Following commands, speech normal, no focal deficits SKIN:: Warm, dry. No rashes lesions or abrasions PSYCHIATRIC: Normal affect/mood H&P: Results Labs Labs: Short CBC 01/19/25 Range/Units 18:19 WBC 10.4 H (4.5-10.0) K/mm3 Hgb 16.9 (14.0-18.0) g/dL Hct 50.9 (42.0-52.0) % Plt Count 227 (150-375) k/mm3 BMP 01/19/25 18:19 Sodium 140 Potassium 3.4 Chloride 101 Carbon Dioxide 28 BUN 21 H Creatinine 0.82 Glucose 124 H Calcium 9.0 Cardiac Enzymes 01/19/25 01/19/25 Range/Units 18:19 21:16 Troponin I < 0.012 < 0.012 (0.000-0.034) ng/mL Liver Function 01/19/25 Range/Units 18:19 Total Bilirubin 0.8 (0.2-1.3) mg/dL AST 41 (17-59) U/L ALT 42 (6-50) U/L Alkaline Phosphatase 74 (38-126) U/L Albumin 4.6 (3.5-5.1) g/dL Assessment and Plan Assessment and plan (1) Dehydration: Code(s): E86.0 - Dehydration Status: Acute (2) Dizziness: Code(s): R42 - Dizziness and giddiness Status: Acute (3) Hypertension: Qualifiers: Hypertension type: primary hypertension Qualified Code(s): I10 - Essential (primary) hypertension Code(s): I10 - Essential (primary) hypertension Status: Acute (4) Asthma: Qualifiers: Asthma severity: moderate Asthma persistence: unspecified Asthma complication type: uncomplicated Qualified Code(s): J45.909 - Unspecified asthma, uncomplicated Code(s): J45.909 - Unspecified asthma, uncomplicated Status: Acute (5) Obesity: Code(s): E66.9 - Obesity, unspecified Status: Acute Plan 1. dizziness presented with nausea and dry heaving associated with vertiginous signs for 4 days vital signs normal,EKG shows sinus rhythm on admission, CTA head and neck negative for any stenosis. noted mild scattered white matter hypoattenuation consistent with chronic some of his ischemic disease meclizine, scopolamine and IV fluid help relieving the symptoms follow MRI brain, will call Neurology will discuss aspirin / Plavix /statin with patient and Neurology 2. hypertension will continue amlodipine and hydrochlorothiazide 3. obesity weight loss recommended as outpatient 4. asthma continue albuterol and Flonase as needed continue montelukast 5. enlarged prostate continue tamsulosin Quality VTE Prophylaxis VTE prophylaxis: pharmacologic ordered ( Lovenox)
[2025-01-20] MEDS: diazePAM INJ (*CRX) 10 MG/2 ML SYRINGE 2.5 MG IV PUSH (09:53)
--- NOTE | 2025-01-20 09:59 | PC.NURSE ---
Valium given by this RN for MRI.
--- NOTE | 2025-01-20 10:00 | PC.NURSE ---
To MRI per stretcher.
--- NOTE | 2025-01-20 10:45 | PC.NURSE ---
Returned to room per stretcher from MRI.
[2025-01-20] MEDS: ACETAMINOPHEN 325 MG TABLET 650 MG PO (20:43)
[2025-01-21] VITALS (12 sets, daily range): BP systolic 131–156; BP diastolic 81–96; PULSE 64–95; RESP 18–22; TEMP 36.3–37.1; O2SAT 95–97
[2025-01-21 06:22] LABS: Alanine Aminotransferase 35 U/L (6-50); Albumin Level 4.1 g/dL (3.5-5.1); Alkaline Phosphatase 66 U/L (38-126); Anion Gap 9 mmol/L (4-12); Aspartate Amino Transferase 44 U/L (17-59); Bilirubin,Total 1.4 mg/dL (0.2-1.3); Blood Urea Nitrogen 13 mg/dL (9-20); Calcium 8.7 mg/dL (8.4-10.2); Carbon Dioxide 26 mmol/L (22-30); Chloride 104 mmol/L (98-107); Estimated CRCL calculation 93 ml/min; Estimated Glomerular Filt Rate > 60; Glucose 90 mg/dL (65-110); Potassium 3.2 mmol/L (3.4-5.0); Sodium 139 mmol/L (137-145); Total Protein 7.3 g/dL (6.3-8.2)
[2025-01-21 07:38] LABS: Hematocrit 49.0 % (42.0-52.0); Hemoglobin 16.1 g/dL (14.0-18.0); Immature Granulocyte Percent A 0.5 % (0-0.5); Lymphocytes Absolute Auto 2.01 K/mm3 (0.9-3.2); Mean Corpuscular HGB Conc 32.9 g/dl (32-36); Mean Corpuscular Hemoglobin 31.3 pg (26-34); Mean Corpuscular Volume 95.3 fl (80-100); Nucleated Red Blood Cells Absolute Auto 0.000 K/mm3 (0.0-0.012); Nucleated Red Blood Cells Perc 0.0 % (0.0-0.2); Platelet Count Result 205 k/mm3 (150-375); Red Blood Count 5.14 M/mm3 (4.6-6.20); White Blood Count 9.3 K/mm3 (4.5-10.0)
[2025-01-21] MEDS: POTASSIUM CHLORIDE 20 MEQ ER TABLET 40 MEQ PO (08:57)
[2025-01-21] MEDS: TAMSULOSIN HCL 0.4 MG CAPSULE BY MOUTH (08:57)
[2025-01-21] MEDS: ENOXAPARIN 40 MG/0.4 ML SYRINGE SUB-Q (08:57)
[2025-01-21] MEDS: MONTELUKAST SODIUM 10 MG TABLET PO (08:57)
[2025-01-21] MEDS: ACETAMINOPHEN 325 MG TABLET 650 MG PO ×3 (08:58→20:09)
--- NOTE | 2025-01-21 11:50 | P.PNIM_ITS ---
Progress Note: A&P Assessment and Plan (1) Dehydration: Code(s): E86.0 - Dehydration Status: Acute (2) Dizziness: Code(s): R42 - Dizziness and giddiness Status: Acute (3) Hypertension: Qualifiers: Hypertension type: primary hypertension Qualified Code(s): I10 - Esse ntial (primary) hypertension Code(s): I10 - Essential (primary) hypertension Status: Acute (4) Asthma: Qualifiers: Asthma severity: moderate Asthma persistence: unspecified Asthma complication type: uncomplicated Qualified Code(s): J45.909 - Unspecified asthma, uncomplicated Code(s): J45.909 - Unspecified asthma, uncomplicated Status: Acute (5) Obesity: Code(s): E66.9 - Obesity, unspecified Status: Acute Plan 1. dizziness presented with nausea and dry heaving associated with vertiginous signs for 4 days vital signs normal,EKG shows sinus rhythm on admission, CTA head and neck negative for any stenosis. noted mild scattered white matter hypoattenuation consistent with chronic some of his ischemic disease meclizine, scopolamine and IV fluid help relieving the symptoms follow MRI brain, will call Neurology Based on MRI findings, we will determine whether to prescribed the following medication: aspirin / Plavix /statin with patient and Neurology Physical therapy and occupational therapy today 2. hypertension continue amlodipine and hydrochlorothiazide 3. obesity weight loss recommended as outpatient 4. asthma continue albuterol and Flonase as needed continue montelukast 5. enlarged prostate continue tamsulosin Time Spent With Patient Time: More than 20 minutes Subjective Date/time seen: 01/21/25 11:50 Interval history: is feeling better. He denies lightheadedness anymore. He had a good night sleep. Review of Systems Review of Systems: All systems reviewed & are unremarkable except as noted in HPI and below Exam Narrative: APPEARANCE: sleep in the bed, obese EYES: EOMI HEENT: Normocephalic, atraumatic, OMM RESPIRATORY: No respiratory distress Clear to auscultation bilaterally with no rhonchi wheezing or rales. CARDIOVASCULAR: RRR, S1 and S2 without murmurs rubs or gallops. ABDOMINAL: BIg body habitus, Soft, nontender, nondistended, no rebound or guarding MSK: range of motion and motor strength intact while lying on bed. NEURO: Awake and alert. Following commands, speech normal, no focal deficits SKIN:: Warm, dry. No rashes lesions or abrasions PSYCHIATRIC: Normal affect/mood Objective Data Vital Signs Vital Signs: Vital Signs - 24 hr 01/20/25 11:51 01/20/25 12:00 01/20/25 15:46 Temperature 36.6 C 37.1 C Pulse Rate 77 72 85 Respiratory Rate 18 22 H Blood Pressure 132/59 L 129/77 Pulse Oximetry 95 95 Oxygen Delivery 01/20/25 16:00 01/20/25 20:00 01/20/25 20:00 Temperature 36.8 C Pulse Rate 78 71 76 Respiratory Rate 16 Blood Pressure 145/91 H Pulse Oximetry 95 Oxygen Delivery 01/20/25 20:45 01/21/25 00:00 01/21/25 04:00 Temperature Pulse Rate 71 70 Respiratory Rate Blood Pressure Pulse Oximetry Oxygen Delivery Room Air 01/21/25 04:50 01/21/25 04:53 01/21/25 07:39 Temperature 37.1 C Pulse Rate 83 83 77 Respiratory Rate 20 20 Blood Pressure 153/96 H 156/88 H 133/81 Pulse Oximetry 95 96 96 Oxygen Delivery 01/21/25 08:45 01/21/25 08:45 01/21/25 11:10 Temperature Pulse Rate 64 84 Respiratory Rate 18 Blood Pressure 137/81 Pulse Oximetry 96 Oxygen Delivery Room Air 01/21/25 11:11 Temperature Pulse Rate 95 Respiratory Rate 22 H Blood Pressure 131/89 Pulse Oximetry 97 Oxygen Delivery Intake/Output Intake/Output: Intake & Output 01/18/25 01/19/25 01/20/25 01/21/25 23:59 23:59 23:59 23:59 Intake Total 1999 1210 600 Output Total 475 1850 Balance 1999 735 -1258 Meds/Results Medications: Active Medications Generic Name Dose Route Start Last Admin Trade Name Freq PRN Reason Stop Dose Admin Acetaminophen 650 mg 01/20/25 20:27 01/21/25 08:58 Acetaminophen 325 Mg Tablet PO 650 mg Q4H PRN Administration Pain Rated 1-3 Albuterol 2 puff 01/20/25 07:18 Albuterol Sulfate (*Sp) Aerosol 1 Puff INHALATION Q4HRT PRN Shortness Of Breath Or Wheezing Amlodipine Besylate 5 mg 01/21/25 09:00 08/31/25 08:57 Amlodipine Besylate 5 Mg Tablet BY MOUTH 5 mg DAILY SUSI Administration Enoxaparin Sodium 40 mg 01/21/25 09:00 01/21/25 08:57 Enoxaparin 40 Mg/0.4 Ml Syringe SUB-Q 40 mg DAILY SUSI Administration Fluticasone Propionate 1 - 2 spray 01/20/25 07:18 Fluticasone Propionate 0.05% Na Spr 16 Gm Btl (*Bkc) NASAL DAILY PRN Nasal Congestion Hydrochlorothiazide 12.5 mg 01/21/25 09:00 01/21/25 08:57 Hydrochlorothiazide 12.5 Mg Capsule PO 12.5 mg QAM SUSI Administration Montelukast Sodium 10 mg 01/20/25 09:00 01/21/25 08:57 Montelukast Sodium 10 Mg Tablet PO 10 mg QAM SUSI Administration Tamsulosin HCl 0.4 mg 01/21/25 09:00 01/21/25 08:57 Tamsulosin Hcl 0.4 Mg Capsule BY MOUTH 0.4 mg QAM SUSI Administration Radiology Results: ITS Impressions Chest X-Ray 01/19/25 17:55 Impression: No acute cardiopulmonary abnormality. Head/Neck CTA 01/19/25 20:25 IMPRESSION: 1. No evident atherosclerotic plaque with 0% stenosis of the right and left carotid bulbs relative to normal distal artery lumen diameter (NASCET criteria). 2. Unremarkable cerebral CT angiogram with no hemodynamically significant stenosis, aneurysm or thrombosis. 3. Mild scattered white matter hypoattenuation consistent with chronic small vessel ischemic disease. No acute intracranial process. Labs Labs: Laboratory Results - last 24 hr 01/21/25 01/21/25 05:00 05:02 WBC 9.3 RBC 5.14 Hgb 16.1 Hct 49.0 MCV 95.3 MCH 31.3 MCHC 32.9 RDW 13.7 Plt Count 205 MPV 11.7 H Immature Gran % (Auto) 0.5 Neut % (Auto) 64.2 Lymph % (Auto) 21.6 [place] % (Auto) 12.5 H Eos % (Auto) 0.8 Baso % (Auto) 0.4 Lymph # (Auto) 2.01 [place] # (Auto) 1.2 H Eos # (Auto) 0.1 Baso # (Auto) 0.0 Abs Immat Gran (auto) 0.05 H Absolute Neuts (auto) 6.0 Absolute Nucleated RBC 0.000 Nucleated RBC % 0.0 Sodium 139 Potassium 3.2 L Chloride 104 Carbon Dioxide 26 Anion Gap 9 BUN 13 D Creatinine 0.86 Estim Creat Clear Calc 93 Estimated GFR > 60 Glucose 90 Calcium 8.7 Total Bilirubin 1.4 H AST 44 ALT 35 Alkaline Phosphatase 66 Total Protein 7.3 Albumin 4.1 Quality VTE Prophylaxis VTE prophylaxis: pharmacologic ordered ( Lovenox)
[2025-01-21] MEDS: CLOPIDOGREL BISULFATE 300 MG TABLET PO (15:50)
[2025-01-21 18:14] LABS: Hematocrit 49.0 % (42.0-52.0); Hemoglobin 16.3 g/dL (14.0-18.0); Mean Corpuscular HGB Conc 33.3 g/dl (32-36); Mean Corpuscular Hemoglobin 30.6 pg (26-34); Mean Corpuscular Volume 92.1 fl (80-100); Platelet Count Result 204 k/mm3 (150-375); Red Blood Count 5.32 M/mm3 (4.6-6.20); White Blood Count 9.4 K/mm3 (4.5-10.0)
[2025-01-22] VITALS (12 sets, daily range): BP systolic 126–151; BP diastolic 80–100; PULSE 77–103; RESP 17–20; TEMP 36.4–36.9; O2SAT 94–99
[2025-01-22 05:44] LABS: Alanine Aminotransferase 35 U/L (6-50); Albumin Level 4.2 g/dL (3.5-5.1); Alkaline Phosphatase 74 U/L (38-126); Anion Gap 9 mmol/L (4-12); Aspartate Amino Transferase 37 U/L (17-59); Bilirubin,Total 1.7 mg/dL (0.2-1.3); Blood Urea Nitrogen 14 mg/dL (9-20); Calcium 8.6 mg/dL (8.4-10.2); Carbon Dioxide 24 mmol/L (22-30); Chloride 102 mmol/L (98-107); Estimated CRCL calculation 100 ml/min; Estimated Glomerular Filt Rate > 60; Glucose 104 mg/dL (65-110); Potassium 3.3 mmol/L (3.4-5.0); Sodium 135 mmol/L (137-145); Total Protein 7.5 g/dL (6.3-8.2)
[2025-01-22] MEDS: ATORVASTATIN 40 MG TABLET 80 MG PO (10:04)
[2025-01-22] MEDS: TAMSULOSIN HCL 0.4 MG CAPSULE BY MOUTH (10:04)
[2025-01-22] MEDS: ASPIRIN 81 MG ENTERIC TABLET PO (10:04)
[2025-01-22] MEDS: MONTELUKAST SODIUM 10 MG TABLET PO (10:05)
[2025-01-22] MEDS: CLOPIDOGREL BISULFATE 75 MG TABLET PO (10:05)
[2025-01-22] MEDS: ACETAMINOPHEN 325 MG TABLET 650 MG PO ×2 (10:06→17:47)
[2025-01-22] MEDS: ENOXAPARIN 40 MG/0.4 ML SYRINGE SUB-Q (10:12)
[2025-01-22] MEDS: PERFLUTREN LIPID MICROSPHERES 1.5 ML VIAL DILUTED TO 10 ML TOTAL VOLUME IV PUSH (11:25)
--- NOTE | 2025-01-22 12:01 | IVDEFINITY ---
Prior to administration of IV Definity the patient was educated on the risks and benefits of the imaging enhancing agent including potential adverse side effects. The patient verbalized understanding. Allergies were verified. No exclusion criteria were identified and at least one of the following inclusion criteria were met: 1) physician request, 2) patient technically difficult to image (per the [place] [employer] guidelines of two or more segments not discernable within the apical view), or 3) questionable left ventricular function. ?
--- NOTE | 2025-01-22 15:10 | ECHO_ITS ---
Patient Info Name: Donald Jain Age: 64 years : 1960 Gender: Male Ht: 70 in Wt: 246 lbs BSA: 2.39 m2 HR: 79 bpm BP: 142 / 92 mmHg Heart Rhythm: Sinus Rhythm Technical Quality: Fair Exam Date: 01/22/2025 11:17 AM Patient Status: O Admit Date: 01/19/2025 Exam Type: CA echo dop bubble study w con Complete two-dimentional, color flow and Doppler transthoracic echocardiogram is performed with agitated saline and with contrast to opacify the left ventricle and to improve the delineation of the left ventricle endocardial borders. Staff Referring Physician: Remedios Squires Telegraphic Typewriter Installer: Tiana Servin Attending Provider: Merle Mann DO Contrast/Agitated Saline Contrast/Ag. Saline: Definity Amount: 2.00 ml Administered By: Tiana Servin Existing IV Access: Yes IV Access Condition: patent with no signs of infiltration Contrast/Ag. Saline: Agitated Saline Amount: 20.00 ml Existing IV Access: Yes IV Access Condition: patent with no signs of infiltration Summary 1. Definity contrast administered improved wall motion interpretation. 2. Left ventricular chamber dimension is normal. 3. Left ventricular systolic function is normal, estimated at 60-65. 4. The left ventricular diastolic function is grade I diastolic dysfunction. 5. E/e' 10 is mildly elevated. 6. There is mild aortic valve sclerosis. 7. There is trace tricuspid valve regurgitation. Left Ventricle Definity contrast administered improved wall motion interpretation. Left ventricular chamber dimension is normal. Left ventricular systolic function is normal, estimated at 60-65. The left ventricular diastolic function is grade I diastolic dysfunction. E/e' 10 is mildly elevated. Right Ventricle Right ventricular chamber dimension is normal. Right ventricular systolic function is normal and with normal TAPSE 2.4 cm. Left Atria Left atrial chamber dimension is normal. Right Atria Right atrial chamber dimension is normal. Atrial Septum Intact interatrial septum visualized by 2D and agitated saline imaging. Agitated saline injection with and without valsalva maneuver opacified right side cardiac chambers without shunt to left side cardiac chambers. Aortic Valve The aortic valve is trileaflet. There is mild aortic valve sclerosis. There is no aortic valve stenosis. There is no aortic valve regurgitation. Pulmonic Valve There is no pulmonic regurgitation. Mitral Valve There is no mitral valve stenosis. There is no mitral valve regurgitation. Tricuspid Valve There is trace tricuspid valve regurgitation. RVSP is not measured due to an inadequate TR jet. Pericardium/Pleural There is no pericardial effusion. Inferior Vena Cava Normal inferior vena cava with >50% collapse upon inspiration consistent with normal right atrial pressure, 5 mmHg. Aorta The aortic root size at the sinus of Valsalva is normal. Left Ventricular Outflow Tract Name Value Normal LVOT 2D LVOT Diameter 2.0 cm LVOT Doppler LVOT Peak Velocity 120 cm/s LVOT Peak Gradient 6 mmHg LVOT Mean Gradient 3 mmHg LVOT VTI 19 cm LVOT VTI/AV VTI Ratio 0.8 LVOT Stroke Volume 62 ml LVOT CO 4.8 l/min LVOT CI 2.0 l/min/m2 Pulmonic Valve Name Value Normal RVOT Doppler RVOT Peak Velocity 94 cm/s RVOT Peak Gradient 4 mmHg PV Doppler PV Peak Velocity 115 cm/s PV Peak Gradient 5 mmHg Mitral Valve Name Value Normal MV Diastolic Function MV E Peak Velocity 66 cm/s MV A Peak Velocity 115 cm/s MV E/A 0.6 MV Decel Time (PW) 237 ms MV Annular TDI MV E/e' (Septal) 10.8 MV E/e' (Lateral) 10.5 MV E/e' (Average) 10.7 Tricuspid Valve Name Value Normal Estimated PAP/RSVP RA Pressure 5 mmHg <=5 TV Annular TDI TV Lateral Jacquie s' Velocity 16.2 cm/s >=9.5 Aortic Valve Name Value Normal AV Doppler AV Peak Velocity 158 cm/s AV Peak Gradient 10 mmHg AV Mean Gradient 5 mmHg AV VTI 24 cm AV Area (Cont Eq VTI) 2.6 cm2 >=3.0 AV Area (Cont Eq Hal) 2.4 cm2 AV DI (Hal) 0.76 AV Regurgitation 2D LVOT Area 3.2 cm2 Ventricles Name Value Normal LV Dimensions 2D/MM IVS Diastolic Thickness (2D) 1.1 cm 0.6-1.0 LVID Diastole (2D) 4.4 cm 4.2-5.8 LVIW Diastolic Thickness (2D) 1.0 cm 0.6-1.0 LVID Systole (2D) 3.0 cm 2.5-4.0 LVOT Diameter 2.0 cm LV Mass (2D Cubed) 154.25 g 88.00-224.00 LV Mass Index (2D Cubed) 65 g/m2 49-115 Relative Wall Thickness (2D) 0.45 <=0.42 LV Fractional Shortening/Ejection Fraction 2D/MM LV Fractional Shortening (2D) 32 % 25-43 LV EF (2D Teichholz) 60 % LV Diastolic Volume (4C MOD) 73 ml LV EF (4C MOD) 64 % LV Diastolic Volume (2C MOD) 61 ml LV EF (2C MOD) 60 % LV Diastolic Volume (BP MOD) 68 ml 62-150 LV Diastolic Volume Index (BP MOD) 28 ml/m2 34-74 LV Systolic Volume (BP MOD) 26 ml 21-61 LV Systolic Volume Index (BP MOD) 11 ml/m2 11-31 LV EF (BP MOD) 61 % 52-72 LV Diastolic Length (4C) 8.2 cm LV Systolic Length (4C) 6.7 cm LV Stroke Volume (4C MOD) 47 ml Atria Name Value Normal LA Dimensions LA Volume (4C A-L) 53 ml LA Volume (BP A-L) 60 ml RA Dimensions RA Area (4C) 18.3 cm2 <=18.0 Report Signatures
--- NOTE | 2025-01-22 16:28 | PM.IMPN ---
Progress Note: A&P Assessment and Plan (1) Dehydration: Code(s): E86.0 - Dehydration Status: Acute (2) Dizziness: Code(s): R42 - Dizziness and giddiness Status: Acute (3) Hypertension: Qualifiers: Hypertension type: primary hypertension Qualified Code(s): I10 - Essential (primary) hypertension Code(s): I10 - Essential (primary) hypertension Status: Acute (4) Asthma: Qualifiers: Asthma severity: moderate Asthma persistence: unspecified Asthma complication type: uncomplicated Qualified Code(s): J45.909 - Unspecified asthma, uncomplicated Code(s): J45.909 - Unspecified asthma, uncomplicated Status: Acute (5) Obesity: Code(s): E66.9 - Obesity, unspecified Status: Acute Plan 1. Acute right cerebellar infact presented with nausea and dry heaving associated with vertiginous signs for 4 days MRI brain shows acute right cerebral infarct Continue aspirin/Plavix/Lipitor Echo echo shows EF 60-65 with a or motion abnormality He notes event monitor upon discharge Physical therapy recommends outpatient physical therapy Encouraged to get a sleep study as outpatient 2. hypertension continue amlodipine and hydrochlorothiazide 3. obesity weight loss recommended as outpatient 4. asthma continue albuterol and Flonase as needed continue montelukast 5. enlarged prostate continue tamsulosin 6. Disposition Home tomorrow Please order event Monitor for 7 days Refer physical therapy as outpatient PCP follow-up Time Spent With Patient Time: 25 minutes Subjective Date/time seen: 01/22/25 16:28 Interval history: He complains headache and for this improving with Tylenol. His dizziness is improving. He denies nausea or vomiting. He is still wobbly. He participates with physical therapy and it went well. Physical therapy recommends home with outpatient physical therapy. Review of Systems Review of Systems: All systems reviewed & are unremarkable except as noted in HPI and below Exam Narrative: APPEARANCE: sleep in the bed, obese EYES: EOMI HEENT: Normocephalic, atraumatic, OMM RESPIRATORY: No respiratory distress Clear to auscultation bilaterally with no rhonchi wheezing or rales. CARDIOVASCULAR: RRR, S1 and S2 without murmurs rubs or gallops. ABDOMINAL: BIg body habitus, Soft, nontender, nondistended, no rebound or guarding MSK: range of motion and motor strength intact while lying on bed. NEURO: Awake and alert. Following commands, speech normal, no focal deficits SKIN:: Warm, dry. No rashes lesions or abrasions PSYCHIATRIC: Normal affect/mood Objective Data Vital Signs Vital Signs: Vital Signs - 24 hr 01/21/25 19:55 01/21/25 20:00 01/21/25 20:10 Temperature 36.3 C L Pulse Rate 76 85 Respiratory Rate 18 Blood Pressure 139/87 Pulse Oximetry 96 Oxygen Delivery Room Air 01/22/25 00:00 01/22/25 00:10 01/22/25 04:00 Temperature 36.4 C L Pulse Rate 85 79 78 Respiratory Rate 18 Blood Pressure 151/98 H Pulse Oximetry 95 Oxygen Delivery 01/22/25 05:17 01/22/25 05:20 01/22/25 05:23 Temperature 36.9 C Pulse Rate 79 Respiratory Rate 17 Blood Pressure 126/80 131/99 H 142/92 H Pulse Oximetry 97 Oxygen Delivery 01/22/25 08:00 01/22/25 08:00 01/22/25 08:00 Temperature 36.6 C Pulse Rate 86 86 90 Respiratory Rate 18 18 Blood Pressure 150/91 H 150/91 H Pulse Oximetry 94 94 Oxygen Delivery 01/22/25 09:10 01/22/25 09:52 01/22/25 09:52 Temperature Pulse Rate 86 103 H Respiratory Rate 20 20 Blood Pressure 151/100 H 135/97 H Pulse Oximetry 96 96 Oxygen Delivery Room Air 01/22/25 12:00 01/22/25 12:00 Temperature 36.6 C Pulse Rate 85 87 Respiratory Rate 18 Blood Pressure 140/92 H Pulse Oximetry 97 Oxygen Delivery Intake/Output Intake/Output: Intake & Output 01/19/25 01/20/25 01/21/25 01/22/25 23:59 23:59 23:59 23:59 Intake Total 1999 1210 1220 1030 Output Total 836 7690 1500 Balance 1999 159 -014 -411 Meds/Results Medications: Active Medications Generic Name Dose Route Start Last Admin Trade Name Freq PRN Reason Stop Dose Admin Acetaminophen 650 mg 01/20/25 20:27 01/22/25 10:06 Acetaminophen 325 Mg Tablet PO 650 mg Q4H PRN Administration Pain Rated 1-3 Albuterol 2 puff 01/20/25 07:18 Albuterol Sulfate (*Sp) Aerosol 1 Puff INHALATION Q4HRT PRN Shortness Of Breath Or Wheezing Amlodipine Besylate 10 mg 01/23/25 09:00 Amlodipine Besylate 10 Mg Tablet BY MOUTH DAILY [facility] Aspirin 81 mg 01/22/25 09:00 01/22/25 10:04 Aspirin 81 Mg Enteric Tablet PO 81 mg DAILY SUSI Administration Atorvastatin Calcium 80 mg 01/22/25 09:00 01/22/25 10:04 Atorvastatin 40 Mg Tablet PO 80 mg DAILY SUSI Administration Clopidogrel Bisulfate 75 mg 01/22/25 09:00 01/22/25 10:05 Clopidogrel Bisulfate 75 Mg Tablet PO 75 mg QAM [facility] Administration Enoxaparin Sodium 40 mg 01/21/25 09:00 01/22/25 10:12 Enoxaparin 40 Mg/0.4 Ml Syringe SUB-Q 40 mg DAILY [facility] Administration Fluticasone Propionate 1 - 2 spray 01/20/25 07:18 Fluticasone Propionate 0.05% Na Spr 16 Gm Btl (*Bkc) NASAL DAILY PRN Nasal Congestion Hydrochlorothiazide 25 mg 01/23/25 09:00 Hydrochlorothiazide 12.5 Mg Capsule PO QAM [facility] Metoprolol Succinate 50 mg 01/23/25 09:00 Metoprolol Succinate Ext Rel 50 Mg Tabcr PO DAILY [facility] Montelukast Sodium 10 mg 01/20/25 09:00 01/22/25 10:05 Montelukast Sodium 10 Mg Tablet PO 10 mg QAM [facility] Administration Tamsulosin HCl 0.4 mg 01/21/25 09:00 01/22/25 10:04 Tamsulosin Hcl 0.4 Mg Capsule BY MOUTH 0.4 mg QAM SUSI Administration Radiology Results: ITS Impressions Chest X-Ray 01/19/25 17:55 Impression: No acute cardiopulmonary abnormality. Head/Neck CTA 01/19/25 20:25 IMPRESSION: 1. No evident atherosclerotic plaque with 0% stenosis of the right and left carotid bulbs relative to normal distal artery lumen diameter (NASCET criteria). 2. Unremarkable cerebral CT angiogram with no hemodynamically significant stenosis, aneurysm or thrombosis. 3. Mild scattered white matter hypoattenuation consistent with chronic small vessel ischemic disease. No acute intracranial process. Brain MRI 01/21/25 13:04 IMPRESSION: 1. Acute right cerebellar infarct. 2. Additional scattered nonspecific periventricular predominant white matter T2 hyperintensity consistent with chronic small vessel ischemic disease. Labs Labs: Laboratory Results - last 24 hr 01/21/25 01/22/25 18:06 04:53 WBC 9.4 RBC 5.32 Hgb 16.3 Hct 49.0 MCV 92.1 MCH 30.6 MCHC 33.3 RDW 13.4 Plt Count 204 MPV 11.3 H Sodium 135 L Potassium 3.3 L Chloride 102 Carbon Dioxide 24 Anion Gap 9 BUN 14 Creatinine 0.79 Estim Creat Clear Calc 100 Estimated GFR > 60 Glucose 104 Calcium 8.6 Total Bilirubin 1.7 H AST 37 ALT 35 Alkaline Phosphatase 74 Total Protein 7.5 Albumin 4.2 Quality VTE Prophylaxis VTE prophylaxis: pharmacologic ordered ( Lovenox)
--- NOTE | 2025-01-22 17:29 | P.CONNEU_ITS ---
Assessment and Plan Assessment and plan (1) Acute cerebrovascular accident (CVA) due to occlusion of right cerebellar artery: Code(s): I63.541 - Cerebral infarction due to unspecified occlusion or stenosis of right cerebellar artery Status: Acute (2) Hypertension: Qualifiers: Hypertension type: primary hypertension Qualified Code(s): I10 - Essential (primary) hypertension Code(s): I10 - Essential (primary) hypertension Status: Acute Plan The patient is complaining of frequent headaches and a we can use Depakote ER 500 mg twice a day on as-needed basis. In addition blood pressure should be controlled. He is already on aspirin and Plavix and atorvastatin 80 mg a day. He was given a loading dose of Plavix 300 mg followed by 75 mg daily. He is tolerating medications fairly well. Patient anxious regarding his work and I told him that given the findings and the fact that he has ataxia while walking it may be while before his feet for work again. He should continue to work with physical therapist and safety precautions were once again emphasized. Blood pressure and risk factors such as smoking should be returned. He states that he is given a be smoking completely just prior to the onset of symptoms.. Last LDL on 01/11/2025 was 18 the goal should be to keep it under 65 around 50. I shall be glad to follow him up in out patient from neurologic point of view. Consult date: 01/22/25 HPI: Donald Jain is a 64 year old male Who presented to the hospital with the complaints of dizziness and ataxia and vomiting which started Four days prior to admission. Patient is a regional intermodal truck driver. The time of the evaluation. Initial testing such as CT scan of brain was reported to be unremarkable. An MRI of the brain has shown a large infarct in the right cerebellar area. Patient states that when he walks he does tend to have imbalance. Physical therapy is working with him. He has been started on aspirin Plavix and atorvastatin. His last LDL on 01/11/2025 was 80. No prior history of dizziness. No ringing in the years or hearing loss reported. Patient has been a smoker but since symptoms started he decided to stop it. Review of Systems 2 Review of Systems: The patient also has been complaining of headache and has been given Tylenol. His blood pressure has been somewhat on the high side according to the nursing staff. Other than that no other symptoms reported. [facility] Past Medical History Medical History Asthma Social History Social History Smoking packs per day: 0.5 Smoking cigarettes per day: 10.0 Years smoked: 20 Smoking pack-years: 10.00 Smoking status: Current some day smoker Tobacco type: cigarettes Alcohol intake: never Substance use: never Do You Feel Safe in your Home?: Yes Lack of Transportation: No Lack of Food: Never True Current Housing: I Have Housing Concerned About Future Housing: No Difficulty Paying Gas/Electric Bills: No Difficulty Paying for Meds: No Currently Unemployed: No Education: Associate Degree Difficulty w/ Childcare or Family Care: No Spiritual care concerns: No Meds Home Medications and Allergies Home Medications ?Medication ?Instructions ?Recorded ?Confirmed ?Type albuterol sulfate 90 mcg/actuation 2 puff inhalation Q 4-6H PRN 03/23/22 01/20/25 Rx aerosol inhaler (ProAir HFA) shortness of breath or wh eezing #27 grams fluticasone propionate 50 1 - 2 spray intranasal DAILY PRN 02/11/24 01/20/25 Rx mcg/actuation nasal nasal congestion #48 grams spray,suspension (Flonase Allergy Relief) amlodipine 10 mg tablet See Rx Instructions .Route 0 08/14/24 01/20/25 Rx .COMPLEX #90 tabs hydrochlorothiazide 25 mg tablet See Rx Instructions . Route 08/14/24 01/20/25 Rx .COMPLEX #90 tabs metoprolol succinate 50 mg See Rx Instructions .Route 08/14/24 01/20/25 Rx tablet,extended release 24 hr .COMPLEX #90 tabs ibuprofen 800 mg tablet See Rx Instructions .Route 0 10/25/24 01/20/25 Rx .COMPLEX #90 tabs tamsulosin 0.4 mg capsule See Rx Instructions .Route 0 12/25/24 01/20/25 Rx .COMPLEX #90 caps loratadine 10 mg tablet (Claritin) 10 mg PO DAILY 12/2401/20/25 History montelukast 10 mg tablet 10 mg PO QAM 01/20/25 History Allergies Allergy/AdvReac Type Severity Reaction Status Date / Time Tetanus Vaccines and Toxoid Allergy Mild unknown Verified 01/19/25 17:29 tetanus and diphtheria Allergy Unknown unknown Verified 01/19/25 17:29 toxoids Vital Signs Vital Signs - 24 hr 01/21/25 19:55 01/21/25 20:00 01/21/25 20:10 Temperature 97.4 F L Pulse Rate 76 85 Respiratory Rate 18 Blood Pressure 139/87 Pulse Oximetry 96 Oxygen Delivery Room Air 01/22/25 00:00 01/22/25 00:10 01/22/25 04:00 Temperature 97.5 F L Pulse Rate 85 79 78 Respiratory Rate 18 Blood Pressure 151/98 H Pulse Oximetry 95 Oxygen Delivery 01/22/25 05:17 01/22/25 05:20 01/22/25 05:23 Temperature 98.4 F Pulse Rate 79 Respiratory Rate 17 Blood Pressure 126/80 131/99 H 142/92 H Pulse Oximetry 97 Oxygen Delivery 01/22/25 08:00 01/22/25 08:00 01/22/25 08:00 Temperature 97.8 F Pulse Rate 86 86 90 Respiratory Rate 18 18 Blood Pressure 150/91 H 150/91 H Pulse Oximetry 94 94 Oxygen Delivery 01/22/25 09:10 01/22/25 09:52 01/22/25 09:52 Temperature Pulse Rate 86 103 H Respiratory Rate 20 20 Blood Pressure 151/100 H 135/97 H Pulse Oximetry 96 96 Oxygen Delivery Room Air 01/22/25 12:00 01/22/25 12:00 01/22/25 16:00 Temperature 97.8 F Pulse Rate 85 87 83 Respiratory Rate 18 Blood Pressure 140/92 H Pulse Oximetry 97 Oxygen Delivery 01/22/25 16:00 Temperature 98.3 F Pulse Rate 77 Respiratory Rate 18 Blood Pressure 135/94 H Pulse Oximetry 96 Oxygen Delivery Exam 2 Const: General: cooperative, well developed and alert O rientation/consciousness: patient oriented x3 HENMT: Head: atraumatic Mouth: Yes oropharynx normal Eyes: Alignment and Position: position normal Pupils: Equal, round and reactive pupils present EOM: EOMs intact bilaterally Neck: Neck: supple Resp: Effort & Inspection: normal respiratory effort Cardio: Rhythm: regular rhythm Skin: General skin exam: normal color Neuro: General: Unable to assess gait Cranial nerves: Yes CN's II-XII intact bilaterally, Yes facial sensation intact/muscles of mastication intact, Yes Equal, round and reactive pupils present, Yes Bilaterally intact EOM present, Yes Nystagmus not present, Yes facial symmetry, Yes Midline tongue present, Yes Symmetric palate elevation present and Yes Ability to bilaterally elevate shoulders present Cognition (Neuro): normal cognition Speech: n ormal speech Motor exam (neuro): 5/5 motor strength present throughout, Motor fasciculations not present, Normal motor muscle tone present throughout and Motor abnormalities not present Sensory Exam: normal sensation C oordination: [id number] test normal and Normal rapid alternating movements of the distal upper extremity present (Neuro) Other: No involuntary movements were seen. Psych: Mental Status: mental status grossly normal Affect: normal affect Results Labs 01/21/25 18:06 01/22/25 04:53 Labs: Short CBC 01/21/25 Range/Units 18:06 WBC 9.4 (4.5-10.0) K/mm3 Hgb 16.3 (14.0-18.0) g/dL Hct 49.0 (42.0-52.0) % Plt Count 204 (150-375) k/mm3 BMP 01/22/25 04:53 Sodium 135 L Potassium 3.3 L Chloride 102 Carbon Dioxide 24 BUN 14 Creatinine 0.79 Glucose 104 Calcium 8.6 Liver Function 01/22/25 Range/Units 04:53 Total Bilirubin 1.7 H (0.2-1.3) mg/dL AST 37 (17-59) U/L ALT 35 (6-50) U/L Alkaline Phosphatase 74 (38-126) U/L Albumin 4.2 (3.5-5.1) g/dL Imaging Attestation: I personally reviewed and interpreted this imaging study as follows: ( MRI of the brain ) My impression: large infarct noted in the right cerebellar hemisphere. Mild chronic white matter changes were also in both cerebral hemispheres. Radiologist's impression: Same
[2025-01-22 17:57] LABS: Hematocrit 51.5 % (42.0-52.0); Hemoglobin 17.0 g/dL (14.0-18.0); Mean Corpuscular HGB Conc 33.0 g/dl (32-36); Mean Corpuscular Hemoglobin 30.4 pg (26-34); Mean Corpuscular Volume 92.1 fl (80-100); Platelet Count Result 233 k/mm3 (150-375); Red Blood Count 5.59 M/mm3 (4.6-6.20); White Blood Count 10.6 K/mm3 (4.5-10.0)
[2025-01-23] VITALS (13 sets, daily range): BP systolic 131–154; BP diastolic 85–100; PULSE 69–100; RESP 16–18; TEMP 36.1–37; O2SAT 91–94
[2025-01-23 06:38] LABS: Alanine Aminotransferase 32 U/L (6-50); Albumin Level 4.1 g/dL (3.5-5.1); Alkaline Phosphatase 75 U/L (38-126); Anion Gap 9 mmol/L (4-12); Aspartate Amino Transferase 34 U/L (17-59); Bilirubin,Total 1.4 mg/dL (0.2-1.3); Blood Urea Nitrogen 16 mg/dL (9-20); Calcium 8.8 mg/dL (8.4-10.2); Carbon Dioxide 25 mmol/L (22-30); Chloride 102 mmol/L (98-107); Estimated CRCL calculation 93 ml/min; Estimated Glomerular Filt Rate > 60; Glucose 112 mg/dL (65-110); Potassium 3.4 mmol/L (3.4-5.0); Sodium 136 mmol/L (137-145); Total Protein 7.3 g/dL (6.3-8.2)
[2025-01-23] MEDS: TAMSULOSIN HCL 0.4 MG CAPSULE BY MOUTH (08:15)
[2025-01-23] MEDS: ASPIRIN 81 MG ENTERIC TABLET PO (08:15)
[2025-01-23] MEDS: ATORVASTATIN 40 MG TABLET 80 MG PO (08:15)
[2025-01-23] MEDS: ACETAMINOPHEN 325 MG TABLET 650 MG PO ×2 (08:16→21:04)
[2025-01-23] MEDS: ENOXAPARIN 40 MG/0.4 ML SYRINGE SUB-Q (08:16)
[2025-01-23] MEDS: CLOPIDOGREL BISULFATE 75 MG TABLET PO (08:16)
[2025-01-23] MEDS: MONTELUKAST SODIUM 10 MG TABLET PO (08:16)
--- NOTE | 2025-01-23 12:38 | P.DS_ITS ---
DS: Admitting Diagnosis Discharge Date 01/23/2025 Admitting Diagnosis nausea and dry heaves vertiginous sign unsteady DS: Discharge Diagnosis Discharge Diagnosis (1) Acute cerebrovascular accident (CVA) due to occlusion of right cerebellar artery: Code(s): I63.541 - Cerebral infarction due to unspecified occlusion or stenosis of right cerebellar artery Status: Acute DS: Summary Hospital Course Hospital Course: History of Present Illness 64-year-old male with a history of hypertension, BPH, asthma, and obesity presented with 4 days of vertigo, nausea, dry heaving, and unsteady gait. Symptoms began on 01/17/2025. He reported room-spinning vertigo, worsened by head movement or positional changes, and significant gait imbalance. No prior similar episodes, no recent URI, and no history of stroke or seizure. 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 Initial ED evaluation: * Vitals stable * CT/CTA head and neck: No acute findings, mild chronic small vessel ischemic changes * MRI brain: Large acute right cerebellar infarct * Labs: WBC mildly elevated, BMP unremarkable, troponin negative * EKG: Sinus rhythm * Echo: EF 60-65%, no wall motion abnormality * Event monitor on discharge * Physical therapy involved Neurologic Exam (Summary) * Ataxic gait, imbalance with ambulation * No focal motor or sensory deficits reported * No cranial nerve deficits reported Assessment Acute right cerebellar infarct * ICD-10:?I63.541 (Cerebral infarction due to unspecified occlusion or stenosis of right cerebellar artery) * MRI confirmed large right cerebellar infarct. * Symptoms: Vertigo, nausea, vomiting, ataxia.Hypertension * ICD-10:?I10 (Essential hypertension) * Well-controlled on current regimen.Other comorbidities: * Asthma (J45.909), Obesity (E66.9), BPH (N40.1) Plan * Secondary stroke prevention: * Continue dual antiplatelet therapy: Aspirin and Plavix (loading dose 300 mg, then 75 mg daily) * Continue high-intensity statin: Atorvastatin 80 mg daily * Blood pressure control: Continue amlodipine and hydrochlorothiazide * Monitor for risk factors (encourage smoking cessation, weight loss) * Symptom management: * For headache: Depakote ER 500 mg BID as needed * Continue meclizine and scopolamine as needed for vertigo * Rehabilitation: * Continue inpatient physical therapy * Outpatient PT referral upon discharge * Emphasize safety precautions due to ataxia * Cardiac monitoring: * Event monitor for 7 days post-discharge * Outpatient sleep study recommended * Lipid management: * Last LDL 80 mg/dL (goal <65, ideally <50) * Patient counseling: * Discussed prognosis and need for ongoing therapy * Advised that return to work may be delayed due to ataxia * Disposition: * Discharge home planned * Outpatient PT/OT per PT/OT recommendations * patient will have event monitor placed before discharge * F/u with PCP in 3-5 days * F/u with neurology as instructed Time Spent with Patient Time attestation: Total time spent providing and/or coordinating discharge services: DS: Data Data Completed and Pending Labs on day of discharge: Labs from last 24 hours 01/23/25 01/22/25 04:57 17:52 WBC 10.6 H RBC 5.59 Hgb 17.0 Hct 51.5 MCV 92.1 MCH 30.4 MCHC 33.0 RDW 13.2 Plt Count 233 MPV 10.7 H Sodium 136 L Potassium 3.4 Chloride 102 Carbon Dioxide 25 Anion Gap 9 BUN 16 Creatinine 0.86 Estim Creat Clear Calc 93 Estimated GFR > 60 Glucose 112 H Calcium 8.8 Total Bilirubin 1.4 H AST 34 ALT 32 Alkaline Phosphatase 75 Total Protein 7.3 Albumin 4.1 Discharge Plan Discharge Attending physician on discharge: Remedios Squires Consulting providers: Janice Nance; Low Shane Discharging Clinician: Remedios Squires Anticipated Discharge Date/Time: 01/22/25 16:25 Patient Disposition: Home with Home Health Service Activity: unlimited Diet: regular Discharge Instructions: Per Care Coordination, patient to discharge with [facility] ([phone]) for PT/ OT and care home services. Agency will call to a rrange the initial visit. Continue aspirin 81 mg indefinitely Continue Plavix 75 mg daily for 19 days Continue atorvastatin 80 mg HS indefinitely Make sure you wear event monitor for 7 days Please follow physical therapy as outpatient Patient Instructions: Antibiotic Form, How to Stop Smoking (ED) Patient Language: Frisian Stand Alone Forms: General Discharge Information Follow-up/Referrals: Gunner Wilson MD [Primary Care Provider, Internal Medicine] Referral Note: F/u with PCP in 3-5 days Janice Nance MD [Physician, Neurology] Referral Note: F/u with neurology as instructed Discharge Medications: New aspirin 81 mg Tablet,Delayed Release (Dr/Ec) 81 mg PO DAILY 30 Days Qty: 30 1RF atorvastatin 40 mg Tablet 80 mg PO DAILY 30 Days Qty: 60 0RF hydrochlorothiazide 12.5 mg Capsule 25 mg PO QAM 30 Days Qty: 60 1RF divalproex [Depakote ER] 500 mg Tablet Extended Release 24 Hr 500 mg PO BID PRN (Reason: Headache) 30 Days Qty: 30 0RF clopidogrel 75 mg Tablet 75 mg PO QAM 21 Days Qty: 21 0RF ondansetron 4 mg Tablet,Disintegrating 4 mg PO Q6H PRN (Reason: Nausea And Vomiting) 30 Days Qty: 30 0RF lisinopril 2.5 mg tablet 2.5 mg PO DAILY Qty: 30 1RF Continued fluticasone propionate [Flonase Allergy Relief] 50 mcg/actuation spray,suspension 1 - 2 spray NASAL DAILY PRN (Reason: nasal congestion) Qty: 48 0RF Rx Instructions: administer into each nostril loratadine [Claritin] 10 mg tablet 10 mg PO DAILY Patient Comments: Takes in afternoon montelukast 10 mg tablet 10 mg PO QAM albuterol sulfate [ProAir HFA] 90 mcg/actuation HFA aerosol inhaler 2 puff INHALATION Q4-6H PRN (Reason: shortness of breath or wheezing) Qty: 27 2RF metoprolol succinate 50 mg tablet extended release 24 hr See Rx Instructions .ROUTE .COMPLEX Qty: 90 2RF Dose Instruction: Take 1 tablet by mouth once daily Rx Instructions: Take 1 tablet by mouth once daily amlodipine 10 mg tablet See Rx Instructions .ROUTE .COMPLEX Qty: 90 2RF Dose Instruction: Take 1 tablet by mouth once daily Rx Instructions: Take 1 tablet by mouth once daily hydrochlorothiazide 25 mg tablet See Rx Instructions .ROUTE .COMPLEX Qty: 90 2RF Dose Instruction: Take 1 tablet by mouth once daily Rx Instructions: Take 1 tablet by mouth once daily tamsulosin 0.4 mg capsule See Rx Instructions .ROUTE .COMPLEX Qty: 90 2RF Dose Instruction: Take 1 capsule by mouth once daily Rx Instructions: Take 1 capsule by mouth once daily Discontinued ibuprofen 800 mg tablet See Rx Instructions .ROUTE .COMPLEX Qty: 90 2RF Dose Instruction: Take 1 tablet by mouth twice daily with food Rx Instructions: Take 1 tablet by mouth twice daily with food Date of admission: 01/22/25 15:40 Primary Care Provider: Gunner Wilson Admitting Provider: Merle Mann Attending physician on admission: Merle Mann Condition: Stable
[2025-01-23] MEDS: METOPROLOL SUCCINATE EXT REL 50 MG TABCR PO (13:01)
[2025-01-23] MEDS: ONDANSETRON HCL ODT 4 MG TABLET PO (13:01)
[2025-01-23] MEDS: SCOPOLAMINE 1 MG PATCH 1 PATCH TRANSDERM (17:40)
[2025-01-23 17:57] LABS: Hematocrit 50.4 % (42.0-52.0); Hemoglobin 17.2 g/dL (14.0-18.0); Mean Corpuscular HGB Conc 34.1 g/dl (32-36); Mean Corpuscular Hemoglobin 31.3 pg (26-34); Mean Corpuscular Volume 91.8 fl (80-100); Platelet Count Result 225 k/mm3 (150-375); Red Blood Count 5.49 M/mm3 (4.6-6.20); White Blood Count 9.7 K/mm3 (4.5-10.0)
[2025-01-24] VITALS (10 sets, daily range): BP systolic 117–138; BP diastolic 72–90; PULSE 65–98; RESP 16–20; TEMP 36.4–36.5; O2SAT 91–92
[2025-01-24] MEDS: ONDANSETRON HCL ODT 4 MG TABLET PO ×2 (02:16→08:00)
[2025-01-24 05:43] LABS: Alanine Aminotransferase 36 U/L (6-50); Albumin Level 4.3 g/dL (3.5-5.1); Alkaline Phosphatase 70 U/L (38-126); Anion Gap 7 mmol/L (4-12); Aspartate Amino Transferase 39 U/L (17-59); Bilirubin,Total 1.2 mg/dL (0.2-1.3); Blood Urea Nitrogen 20 mg/dL (9-20); Calcium 9.0 mg/dL (8.4-10.2); Carbon Dioxide 28 mmol/L (22-30); Chloride 100 mmol/L (98-107); Estimated CRCL calculation 88 ml/min; Estimated Glomerular Filt Rate > 60; Glucose 112 mg/dL (65-110); Potassium 3.7 mmol/L (3.4-5.0); Sodium 135 mmol/L (137-145); Total Protein 7.6 g/dL (6.3-8.2)
[2025-01-24] MEDS: ATORVASTATIN 40 MG TABLET 80 MG PO (07:59)
[2025-01-24] MEDS: ACETAMINOPHEN 325 MG TABLET 650 MG PO (08:00)
[2025-01-24] MEDS: CLOPIDOGREL BISULFATE 75 MG TABLET PO (08:00)
[2025-01-24] MEDS: TAMSULOSIN HCL 0.4 MG CAPSULE BY MOUTH (08:01)
[2025-01-24] MEDS: MONTELUKAST SODIUM 10 MG TABLET PO (08:01)
[2025-01-24] MEDS: METOPROLOL SUCCINATE EXT REL 50 MG TABCR PO (08:01)
[2025-01-24] MEDS: ASPIRIN 81 MG ENTERIC TABLET PO (08:01)
[2025-01-24] MEDS: ONDANSETRON INJ 4 MG/2 ML VIAL (09:40)
[2025-01-24] MEDS: MECLIZINE HCL 25 MG TABLET PO ×2 (10:44→19:59)
[2025-01-24] MEDS: ENOXAPARIN 40 MG/0.4 ML SYRINGE SUB-Q (10:46)
--- NOTE | 2025-01-24 12:36 | WPDNEUROPN ---
Subjective Date/time seen: 01/24/25 12:36 Interval history: 64 years old right-handed male admitted to the hospital through the emergency room for the complaints of dizziness with nausea and vomiting of several days duration with increasing symptomatology particularly nausea and vomiting and also recurrent falls with no history of any specific medications, a former smoker, normal blood pressure at the time of evaluation in the emergency room except 1 time 1:40 a.m. , initial CTA in the emergency room was negative, brain MRI documented acute right cerebellar infarct. Patient at that particular time was complaining of severe headaches and dizziness but he subsequent course remains at Objective Data Vital Signs Vital Signs: Vital Signs - 24 hr 01/23/25 13:01 01/23/25 14:00 01/23/25 16:00 Temperature 37.0 C Pulse Rate 94 90 99 Respiratory Rate 18 Blood Pressure 154/95 H Pulse Oximetry 93 Oxygen Delivery 01/23/25 20:00 01/23/25 20:00 01/23/25 20:06 Temperature 36.5 C 36.1 C L Pulse Rate 89 87 94 Respiratory Rate 16 16 Blood Pressure 131/85 139/89 Pulse Oximetry 92 91 Oxygen Delivery 01/23/25 20:55 01/24/25 00:00 01/24/25 04:00 Temperature Pulse Rate 88 84 Respiratory Rate Blood Pressure Pulse Oximetry Oxygen Delivery Room Air 01/24/25 05:09 01/24/25 05:09 01/24/25 08:01 Temperature 36.5 C 36.5 C Pulse Rate 87 98 88 Respiratory Rate 16 18 Blood Pressure 131/85 138/90 Pulse Oximetry 92 92 Oxygen Delivery Intake/Output Intake/Output: Intake & Output 01/21/25 01/22/25 01/23/25 01/24/25 23:59 23:59 23:59 23:59 Intake Total 1220 3020 2320 Output Total 1850 1950 400 800 Balance -630 1070 1920 -800 Meds/Results Medications: Active Medications Generic Name Dose Route Start Last Admin Trade Name Freq PRN Reason Stop Dose Admin Acetaminophen 650 mg 01/20/25 20:27 01/24/25 08:00 Acetaminophen 325 Mg Tablet PO 650 mg Q4H PRN Administration Pain Rated 1-3 Albuterol 2 puff 01/20/25 07:18 Albuterol Sulfate (*Sp) Aerosol 1 Puff INHALATION Q4HRT PRN Shortness Of Breath Or Wheezing Amlodipine Besylate 10 mg 01/23/25 09:00 01/24/25 08:00 Amlodipine Besylate 10 Mg Tablet BY MOUTH 10 mg DAILY SUSI Administration Aspirin 81 mg 01/22/25 09:00 01/24/25 08:01 Aspirin 81 Mg Enteric Tablet PO 81 mg DAILY SUSI Administration Atorvastatin Calcium 80 mg 01/22/25 09:00 01/24/25 07:59 Atorvastatin 40 Mg Tablet PO 80 mg DAILY SUSI Administration Clopidogrel Bisulfate 75 mg 01/22/25 09:00 01/24/25 08:00 Clopidogrel Bisulfate 75 Mg Tablet PO 75 mg QAM [facility] Administration Divalproex Sodium 500 mg 01/22/25 17:36 Divalproex Sodium Er 500 Mg Tab.24h PO BID PRN Headache Enoxaparin Sodium 40 mg 01/21/25 09:00 01/24/25 10:46 Enoxaparin 40 Mg/0.4 Ml Syringe SUB-Q 40 mg DAILY SUSI Administration Fluticasone Propionate 1 - 2 spray 01/20/25 07:18 Fluticasone Propionate 0.05% Na Spr 16 Gm Btl (*Bkc) NASAL DAILY PRN Nasal Congestion Hydrochlorothiazide 25 mg 01/23/25 09:00 01/24/25 08:01 Hydrochlorothiazide 12.5 Mg Capsule PO 25 mg QAM SUSI Administration Metoprolol Succinate 50 mg 01/23/25 09:00 01/24/25 08:01 Metoprolol Succinate Ext Rel 50 Mg Tabcr PO 50 mg DAILY SUSI Administration Montelukast Sodium 10 mg 01/20/25 09:00 01/24/25 08:01 Montelukast Sodium 10 Mg Tablet PO 10 mg QAM SUSI Administration Ondansetron HCl 4 mg 01/23/25 11:33 01/24/25 08:00 Ondansetron Hcl Odt 4 Mg Tablet PO 4 mg Q6H PRN Administration Nausea And Vomiting Scopolamine 1 patch 01/23/25 16:25 01/23/25 17:40 Scopolamine 1 Mg Patch TRANSDERM 1 patch Q72HR SUSI Administration Tamsulosin HCl 0.4 mg 01/21/25 09:00 01/24/25 08:01 Tamsulosin Hcl 0.4 Mg Capsule BY MOUTH 0.4 mg QAM SUSI Administration Radiology Results: ITS Impressions Chest X-Ray 01/19/25 17:55 Impression: No acute cardiopulmonary abnormality. Head/Neck CTA 01/19/25 20:25 IMPRESSION: 1. No evident atherosclerotic plaque with 0% stenosis of the right and left carotid bulbs relative to normal distal artery lumen diameter (NASCET criteria). 2. Unremarkable cerebral CT angiogram with no hemodynamically significant stenosis, aneurysm or thrombosis. 3. Mild scattered white matter hypoattenuation consistent with chronic small vessel ischemic disease. No acute intracranial process. Brain MRI 01/21/25 13:04 IMPRESSION: 1. Acute right cerebellar infarct. 2. Additional scattered nonspecific periventricular predominant white matter T2 hyperintensity consistent with chronic small vessel ischemic disease. Labs Labs: Laboratory Results - last 24 hr 01/23/25 01/24/25 17:45 05:12 WBC 9.7 RBC 5.49 Hgb 17.2 Hct 50.4 MCV 91.8 MCH 31.3 MCHC 34.1 RDW 13.3 Plt Count 225 MPV 11.3 H Sodium 135 L Potassium 3.7 Chloride 100 Carbon Dioxide 28 Anion Gap 7 BUN 20 Creatinine 0.91 Estim Creat Clear Calc 88 Estimated GFR > 60 Glucose 112 H Calcium 9.0 Total Bilirubin 1.2 AST 39 ALT 36 Alkaline Phosphatase 70 Total Protein 7.6 Albumin 4.3
--- NOTE | 2025-01-24 12:39 | WPDNEUROPN ---
Subjective Date/time seen: 01/24/25 12:39 Interval history: 64 years old has been admitted to the hospital through the emergency room for the complaints of nausea vomiting dizzy of several days duration without associated diplopia or dysphagia was subsequently getting worse on and Colin up in the emergency room again additional history of 2 falls due to the dizziness. His initial CTA in the ER was normal but MRI of the brain documented acute right cerebellar infarct. Patient continues to have nausea vomiting and dizziness with gait ataxia, re-examined today and because of persistence nausea vomiting dizziness and gait ataxia he will benefit from a stroke rehab otherwise he will end up in the emergency room coming back with a fall even though acute phase of cerebral edema is gradually subsiding And he will not require the surgical intervention. He can be evaluated by the stroke rehab team and transferred there. Objective Data Vital Signs Vital Signs: Vital Signs - 24 hr 01/23/25 13:01 01/23/25 14:00 01/23/25 16:00 Temperature 37.0 C Pulse Rate 94 90 99 Respiratory Rate 18 Blood Pressure 154/95 H Pulse Oximetry 93 Oxygen Delivery 01/23/25 20:00 01/23/25 20:00 01/23/25 20:06 Temperature 36.5 C 36.1 C L Pulse Rate 89 87 94 Respiratory Rate 16 16 Blood Pressure 131/85 139/89 Pulse Oximetry 92 91 Oxygen Delivery 01/23/25 20:55 01/24/25 00:00 01/24/25 04:00 Temperature Pulse Rate 88 84 Respiratory Rate Blood Pressure Pulse Oximetry Oxygen Delivery Room Air 01/24/25 05:09 01/24/25 05:09 01/24/25 08:01 Temperature 36.5 C 36.5 C Pulse Rate 87 98 88 Respiratory Rate 16 18 Blood Pressure 131/85 138/90 Pulse Oximetry 92 92 Oxygen Delivery Intake/Output Intake/Output: Intake & Output 01/21/25 01/22/25 01/23/25 01/24/25 23:59 23:59 23:59 23:59 Intake Total 1220 3020 2320 Output Total 1850 1950 400 800 Balance -630 1070 1920 -800 Meds/Results Medications: Active Medications Generic Name Dose Route Start Last Admin Trade Name Freq PRN Reason Stop Dose Admin Acetaminophen 650 mg 01/20/25 20:27 01/24/25 08:00 Acetaminophen 325 Mg Tablet PO 650 mg Q4H PRN Administration Pain Rated 1-3 Albuterol 2 puff 01/20/25 07:18 Albuterol Sulfate (*Sp) Aerosol 1 Puff INHALATION Q4HRT PRN Shortness Of Breath Or Wheezing Amlodipine Besylate 10 mg 01/23/25 09:00 01/24/25 08:00 Amlodipine Besylate 10 Mg Tablet BY MOUTH 10 mg DAILY SUSI Administration Aspirin 81 mg 01/22/25 09:00 01/24/25 08:01 Aspirin 81 Mg Enteric Tablet PO 81 mg DAILY SUSI Administration Atorvastatin Calcium 80 mg 01/22/25 09:00 01/24/25 07:59 Atorvastatin 40 Mg Tablet PO 80 mg DAILY SUSI Administration Clopidogrel Bisulfate 75 mg 01/22/25 09:00 01/24/25 08:00 Clopidogrel Bisulfate 75 Mg Tablet PO 75 mg QAM SUSI Administration Divalproex Sodium 500 mg 01/22/25 17:36 Divalproex Sodium Er 500 Mg Tab.24h PO BID PRN Headache Enoxaparin Sodium 40 mg 01/21/25 09:00 01/24/25 10:46 Enoxaparin 40 Mg/0.4 Ml Syringe SUB-Q 40 mg DAILY SUSI Administration Fluticasone Propionate 1 - 2 spray 01/20/25 07:18 Fluticasone Propionate 0.05% Na Spr 16 Gm Btl (*Bkc) NASAL DAILY PRN Nasal Congestion Hydrochlorothiazide 25 mg 01/23/25 09:00 01/24/25 08:01 Hydrochlorothiazide 12.5 Mg Capsule PO 25 mg QAM SUSI Administration Metoprolol Succinate 50 mg 01/23/25 09:00 01/24/25 08:01 Metoprolol Succinate Ext Rel 50 Mg Tabcr PO 50 mg DAILY SUSI Administration Montelukast Sodium 10 mg 01/20/25 09:00 01/24/25 08:01 Montelukast Sodium 10 Mg Tablet PO 10 mg QAM SUSI Administration Ondansetron HCl 4 mg 01/23/25 11:33 01/24/25 08:00 Ondansetron Hcl Odt 4 Mg Tablet PO 4 mg Q6H PRN Administration Nausea And Vomiting Scopolamine 1 patch 01/23/25 16:25 01/23/25 17:40 Scopolamine 1 Mg Patch TRANSDERM 1 patch Q72HR SUSI Administration Tamsulosin HCl 0.4 mg 01/21/25 09:00 01/24/25 08:01 Tamsulosin Hcl 0.4 Mg Capsule BY MOUTH 0.4 mg QAM SUSI Administration Radiology Results: ITS Impressions Chest X-Ray 01/19/25 17:55 Impression: No acute cardiopulmonary abnormality. Head/Neck CTA 01/19/25 20:25 IMPRESSION: 1. No evident atherosclerotic plaque with 0% stenosis of the right and left carotid bulbs relative to normal distal artery lumen diameter (NASCET criteria). 2. Unremarkable cerebral CT angiogram with no hemodynamically significant stenosis, aneurysm or thrombosis. 3. Mild scattered white matter hypoattenuation consistent with chronic small vessel ischemic disease. No acute intracranial process. Brain MRI 01/21/25 13:04 IMPRESSION: 1. Acute right cerebellar infarct. 2. Additional scattered nonspecific periventricular predominant white matter T2 hyperintensity consistent with chronic small vessel ischemic disease. Labs Labs: Laboratory Results - last 24 hr 01/23/25 01/24/25 17:45 05:12 WBC 9.7 RBC 5.49 Hgb 17.2 Hct 50.4 MCV 91.8 MCH 31.3 MCHC 34.1 RDW 13.3 Plt Count 225 MPV 11.3 H Sodium 135 L Potassium 3.7 Chloride 100 Carbon Dioxide 28 Anion Gap 7 BUN 20 Creatinine 0.91 Estim Creat Clear Calc 88 Estimated GFR > 60 Glucose 112 H Calcium 9.0 Total Bilirubin 1.2 AST 39 ALT 36 Alkaline Phosphatase 70 Total Protein 7.6 Albumin 4.3
--- NOTE | 2025-01-24 13:02 | PM.IMPN ---
Progress Note: A&P Assessment and Plan (1) Acute cerebrovascular accident (CVA) due to occlusion of right cerebellar artery: Code(s): I63.541 - Cerebral infarction due to unspecified occlusion or stenosis of right cerebellar artery Status: Acute Plan 1. Acute right cerebellar infarct presented with nausea and dry heaving associated with vertiginous signs for 4 days MRI brain shows acute right cerebral infarct Continue aspirin/Plavix/Lipitor Echo echo shows EF 60-65 with a or motion abnormality He needs an event monitor upon discharge Physical therapy recommends outpatient physical therapy Encouraged to get a sleep study as outpatient 2. hypertension continue amlodipine and hydrochlorothiazide BP reviewed and stable 3. obesity weight loss recommended as outpatient 4. asthma continue albuterol and Flonase as needed continue montelukast no signs of acute exacerbation 5. enlarged prostate continue tamsulosin 6. Vertigo with associated nausea and vomiting if patient attempts to ambulate started on scopolamine patch yesterday and PRN Zofran add scheduled meclizine 25 mg Q8 hrs neuro recommends patient to go to acute rehab, will discuss with care coordination 7. Disposition Please order event Monitor for 7 days physical therapy as outpatient PCP follow-up DC tomorrow if vertigo/vomiting improved Subjective Date/time seen: 01/24/25 13:02 Interval history: 64 years old has been admitted to the hospital through the emergency room for the complaints of nausea vomiting dizzy of several days duration without associated diplopia or dysphagia was subsequently getting worse on and Colin up in the emergency room again additional history of 2 falls due to the dizziness. His initial CTA in the ER was normal but MRI of the brain documented acute right cerebellar infarct. Patient seen and examined for a follow up visit. Patient developed nausea and vomiting again yesterday prior to discharge and has been unable to get out of bed without vomiting. Patient was started on a scopolamine patch and PRN Zofran. Patient still with complaints of vertigo everytime he gets up. Patient attempted to ambulate with therapy this morning and vomited. Patient given PO meclizine and will start him on scheduled meclizine. 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 Will discuss with care coordination to see if there is a way to get him into inpatient stroke rehab as neuro recommends. Review of Systems Review of Systems: All systems reviewed & are unremarkable except as noted in HPI and below Exam Narrative: General: well appearing, appears stated age. HEENT: normocephalic, . Mucous membranes moist. EOMI, PERRLA, bilateral sclera anicteric, no conjunctival injection. Neck supple without JVD, lymphadenopathy, or bruit. Abrasion to left temporal Respiratory: clear to ascultation bilaterally. No rales/rhonic/wheezes. Cardiovascular: Regular rate and rhythm, normal S1-S2 upon ascultation. No murmurs, rubs, or clicks. PMI is nondisplaced, capillary refill less than 3 second. Abdomen: Soft, round, no pulsatile masses, nondistended and nontender. No rebound, no guarding. No CVA tenderness, no hepatosplenomegaly. Bowel sounds present to all four quadrants. No high pitch or tinkling sounds, resonant to percussion. Extremities: No cyanosis, clubbing, or edema present. Pulses are palpable 2/2. Active ROM to all four extremities. Neuro: Alert and orientated x 4. PERRLA. Cranial nerves 2-12 intact without focal deficit. Skin: Warm, dry, and intact, without rash, erythema, or lesion. Psych: pleasant, cooperative, normal speech, normal affect, no hallucinations, no dysarthia Objective Data Vital Signs Vital Signs: Vital Signs - 24 hr 01/23/25 14:00 01/23/25 16:00 01/23/25 20:00 Temperature 98.6 F Pulse Rate 90 99 89 Respiratory Rate 18 Blood Pressure 154/95 H Pulse Oximetry 93 Oxygen Delivery 01/23/25 20:00 01/23/25 20:06 01/23/25 20:55 Temperature 97.7 F 96.9 F L Pulse Rate 87 94 Respiratory Rate 16 16 Blood Pressure 131/85 139/89 Pulse Oximetry 92 91 Oxygen Delivery Room Air 01/24/25 00:00 01/24/25 04:00 01/24/25 05:09 Temperature 97.7 F Pulse Rate 88 84 87 Respiratory Rate 16 Blood Pressure 131/85 Pulse Oximetry 92 Oxygen Delivery 01/24/25 05:09 01/24/25 08:01 Temperature 97.7 F Pulse Rate 98 88 Respiratory Rate 18 Blood Pressure 138/90 Pulse Oximetry 92 Oxygen Delivery Intake/Output Intake/Output: Intake & Output 0801/22/25 01/23/25 01/24/25 23:59 23:59 23:59 23:59 Intake Total 1220 3020 2320 Output Total 1850 1950 400 800 Balance -630 1070 1920 -800 Meds/Results Medications: Active Medications Generic Name Dose Route Start Last Admin Trade Name Freq PRN Reason Stop Dose Admin Acetaminophen 650 mg 01/20/25 20:27 01/24/25 08:00 Acetaminophen 325 Mg Tablet PO 650 mg Q4H PRN Administration Pain Rated 1-3 Albuterol 2 puff 01/20/25 07:18 Albuterol Sulfate (*Sp) Aerosol 1 Puff INHALATION Q4HRT PRN Shortness Of Breath Or Wheezing Amlodipine Besylate 10 mg 01/23/25 09:00 01/24/25 08:00 Amlodipine Besylate 10 Mg Tablet BY MOUTH 10 mg DAILY SUSI Administration Aspirin 81 mg 01/22/25 09:00 01/24/25 08:01 Aspirin 81 Mg Enteric Tablet PO 81 mg DAILY SUSI Administration Atorvastatin Calcium 80 mg 01/22/25 09:00 01/24/25 07:59 Atorvastatin 40 Mg Tablet PO 80 mg DAILY SUSI Administration Clopidogrel Bisulfate 75 mg 01/22/25 09:00 01/24/25 08:00 Clopidogrel Bisulfate 75 Mg Tablet PO 75 mg QAM SUSI Administration Divalproex Sodium 500 mg 01/22/25 17:36 Divalproex Sodium Er 500 Mg Tab.24h PO BID PRN Headache Enoxaparin Sodium 40 mg 01/21/25 09:00 01/24/25 10:46 Enoxaparin 40 Mg/0.4 Ml Syringe SUB-Q 40 mg DAILY SUSI Administration Fluticasone Propionate 1 - 2 spray 01/20/25 07:18 Fluticasone Propionate 0.05% Na Spr 16 Gm Btl (*Bkc) NASAL DAILY PRN Nasal Congestion Hydrochlorothiazide 25 mg 01/23/25 09:00 01/24/25 08:01 Hydrochlorothiazide 12.5 Mg Capsule PO 25 mg QAM SUSI Administration Metoprolol Succinate 50 mg 01/23/25 09:00 01/24/25 08:01 Metoprolol Succinate Ext Rel 50 Mg Tabcr PO 50 mg DAILY SUSI Administration Montelukast Sodium 10 mg 01/20/25 09:00 01/24/25 08:01 Montelukast Sodium 10 Mg Tablet PO 10 mg QAM SUSI Administration Ondansetron HCl 4 mg 01/23/25 11:33 01/24/25 08:00 Ondansetron Hcl Odt 4 Mg Tablet PO 4 mg Q6H PRN Administration Nausea And Vomiting Scopolamine 1 patch 01/23/25 16:25 01/23/25 17:40 Scopolamine 1 Mg Patch TRANSDERM 1 patch Q72HR SUSI Administration Tamsulosin HCl 0.4 mg 01/21/25 09:00 01/24/25 08:01 Tamsulosin Hcl 0.4 Mg Capsule BY MOUTH 0.4 mg QAM SUSI Administration Radiology Results: ITS Impressions Chest X-Ray 01/19/25 17:55 Impression: No acute cardiopulmonary abnormality. Head/Neck CTA 01/19/25 20:25 IMPRESSION: 1. No evident atherosclerotic plaque with 0% stenosis of the right and left carotid bulbs relative to normal distal artery lumen diameter (NASCET criteria). 2. Unremarkable cerebral CT angiogram with no hemodynamically significant stenosis, aneurysm or thrombosis. 3. Mild scattered white matter hypoattenuation consistent with chronic small vessel ischemic disease. No acute intracranial process. Brain MRI 01/21/25 13:04 IMPRESSION: 1. Acute right cerebellar infarct. 2. Additional scattered nonspecific periventricular predominant white matter T2 hyperintensity consistent with chronic small vessel ischemic disease. Labs Labs: Laboratory Results - last 24 hr 01/23/25 01/24/25 17:45 05:12 WBC 9.7 RBC 5.49 Hgb 17.2 Hct 50.4 MCV 91.8 MCH 31.3 MCHC 34.1 RDW 13.3 Plt Count 225 MPV 11.3 H Sodium 135 L Potassium 3.7 Chloride 100 Carbon Dioxide 28 Anion Gap 7 BUN 20 Creatinine 0.91 Estim Creat Clear Calc 88 Estimated GFR > 60 Glucose 112 H Calcium 9.0 Total Bilirubin 1.2 AST 39 ALT 36 Alkaline Phosphatase 70 Total Protein 7.6 Albumin 4.3 Quality VTE Prophylaxis VTE prophylaxis: pharmacologic ordered ( Lovenox)
[2025-01-24 17:55] LABS: Hematocrit 51.6 % (42.0-52.0); Hemoglobin 16.4 g/dL (14.0-18.0); Mean Corpuscular HGB Conc 31.8 g/dl (32-36); Mean Corpuscular Hemoglobin 30.8 pg (26-34); Mean Corpuscular Volume 96.8 fl (80-100); Platelet Count Result 225 k/mm3 (150-375); Red Blood Count 5.33 M/mm3 (4.6-6.20); White Blood Count 10.6 K/mm3 (4.5-10.0)
[2025-01-25] VITALS (11 sets, daily range): BP systolic 111–138; BP diastolic 57–89; PULSE 67–98; RESP 16–20; TEMP 36.1–36.5; O2SAT 90–100
[2025-01-25] MEDS: MECLIZINE HCL 25 MG TABLET PO ×3 (05:14→21:15)
[2025-01-25 06:20] LABS: Alanine Aminotransferase 56 U/L (6-50); Albumin Level 4.1 g/dL (3.5-5.1); Alkaline Phosphatase 70 U/L (38-126); Anion Gap 8 mmol/L (4-12); Aspartate Amino Transferase 56 U/L (17-59); Bilirubin,Total 1.1 mg/dL (0.2-1.3); Blood Urea Nitrogen 21 mg/dL (9-20); Calcium 8.8 mg/dL (8.4-10.2); Carbon Dioxide 29 mmol/L (22-30); Chloride 98 mmol/L (98-107); Estimated CRCL calculation 85 ml/min; Estimated Glomerular Filt Rate > 60; Glucose 95 mg/dL (65-110); Potassium 3.4 mmol/L (3.4-5.0); Sodium 135 mmol/L (137-145); Total Protein 7.3 g/dL (6.3-8.2)
[2025-01-25] MEDS: METOPROLOL SUCCINATE EXT REL 50 MG TABCR PO (09:10)
[2025-01-25] MEDS: MONTELUKAST SODIUM 10 MG TABLET PO (09:11)
[2025-01-25] MEDS: ENOXAPARIN 40 MG/0.4 ML SYRINGE SUB-Q (09:11)
[2025-01-25] MEDS: CLOPIDOGREL BISULFATE 75 MG TABLET PO (09:11)
[2025-01-25] MEDS: TAMSULOSIN HCL 0.4 MG CAPSULE BY MOUTH (09:11)
[2025-01-25] MEDS: ATORVASTATIN 40 MG TABLET 80 MG PO (09:11)
[2025-01-25] MEDS: ASPIRIN 81 MG ENTERIC TABLET PO (09:11)
[2025-01-25] MEDS: ONDANSETRON HCL ODT 4 MG TABLET PO (10:04)
--- NOTE | 2025-01-25 11:55 | PM.IMPN ---
Progress Note: A&P Assessment and Plan (1) Acute cerebrovascular accident (CVA) due to occlusion of right cerebellar artery: Code(s): I63.541 - Cerebral infarction due to unspecified occlusion or stenosis of right cerebellar artery Status: Acute Plan 1. Acute right cerebellar infarct presented with nausea and dry heaving associated with vertiginous signs for 4 days MRI brain shows acute right cerebral infarct Continue aspirin/Plavix/Lipitor Echo echo shows EF 60-65 with a or motion abnormality He needs an event monitor upon discharge Physical therapy recommends outpatient physical therapy Encouraged to get a sleep study as outpatient Repeat MRI brain per Neurology 2. hypertension continue amlodipine and hydrochlorothiazide BP reviewed and stable 3. obesity weight loss recommended as outpatient 4. asthma continue albuterol and Flonase as needed continue montelukast no signs of acute exacerbation 5. enlarged prostate continue tamsulosin 6. Vertigo with associated nausea and vomiting if patient attempts to ambulate started on scopolamine patch yesterday and PRN Zofran add scheduled meclizine 25 mg Q8 hrs neuro recommends patient to go to acute rehab, will discuss with care coordination 7. Disposition Please order event Monitor for 7 days physical therapy as outpatient PCP follow-up awaitign rehab placement Subjective Date/time seen: 01/25/25 11:55 Interval history: Comfortable at bedside Still having nausea, vomiting and gait imbalance and vertigo Awaiting Rehab placement Review of Systems Review of Systems: All systems reviewed & are unremarkable except as noted in HPI and below Exam Narrative: General: well appearing, appears stated age. HEENT: normocephalic, . Mucous membranes moist. EOMI, PERRLA, bilateral sclera anicteric, no conjunctival injection. Neck supple without JVD, lymphadenopathy, or bruit. Abrasion to left temporal Respiratory: clear to ascultation bilaterally. No rales/rhonic/wheezes. Cardiovascular: Regular rate and rhythm, normal S1-S2 upon ascultation. No murmurs, rubs, or clicks. PMI is nondisplaced, capillary refill less than 3 second. Abdomen: Soft, round, no pulsatile masses, nondistended and nontender. No rebound, no guarding. No CVA tenderness, no hepatosplenomegaly. Bowel sounds present to all four quadrants. No high pitch or tinkling sounds, resonant to percussion. Extremities: No cyanosis, clubbing, or edema present. Pulses are palpable 2/2. Active ROM to all four extremities. Neuro: Alert and orientated x 4. PERRLA. Cranial nerves 2-12 intact without focal deficit. Skin: Warm, dry, and intact, without rash, erythema, or lesion. Psych: pleasant, cooperative, normal speech, normal affect, no hallucinations, no dysarthia Objective Data Vital Signs Vital Signs: Vital Signs - 24 hr 01/24/25 12:00 01/24/25 14:40 01/24/25 16:00 Temperature 97.5 F L Pulse Rate 74 81 65 Respiratory Rate 18 Blood Pressure 121/80 Pulse Oximetry 92 Oxygen Delivery 01/24/25 20:00 01/24/25 20:00 01/24/25 20:00 Temperature 97.6 F Pulse Rate 74 80 Respiratory Rate 16 Blood Pressure 117/72 Pulse Oximetry 91 Oxygen Delivery Room Air 01/24/25 20:50 01/24/25 20:50 01/25/25 00:00 Temperature 97.6 F 97.6 F Pulse Rate 87 87 81 Respiratory Rate 20 18 Blood Pressure 117/77 119/74 Pulse Oximetry 91 91 Oxygen Delivery 01/25/25 04:00 01/25/25 05:43 01/25/25 08:00 Temperature 97.4 F L Pulse Rate 71 74 67 Respiratory Rate 18 Blood Pressure 134/75 Pulse Oximetry 90 Oxygen Delivery 01/25/25 09:08 01/25/25 09:10 Temperature 96.9 F L Pulse Rate 84 84 Respiratory Rate 16 Blood Pressure 131/71 Pulse Oximetry 90 Oxygen Delivery Intake/Output Intake/Output: Intake & Output 01/22/25 01/23/25 01/24/25 01/25/25 23:59 23:59 23:59 23:59 Intake Total 3020 2320 490 440 Output Total 6326 591 6216 475 Balance 4810 1920 -710 -35 Meds/Results Medications: Active Medications Generic Name Dose Route Start Last Admin Trade Name Freq PRN Reason Stop Dose Admin Acetaminophen 650 mg 01/20/25 20:27 01/24/25 08:00 Acetaminophen 325 Mg Tablet PO 650 mg Q4H PRN Administration Pain Rated 1-3 Albuterol 2 puff 01/20/25 07:18 Albuterol Sulfate (*Sp) Aerosol 1 Puff INHALATION Q4HRT PRN Shortness Of Breath Or Wheezing Amlodipine Besylate 10 mg 01/23/25 09:00 01/25/25 09:10 Amlodipine Besylate 10 Mg Tablet BY MOUTH 10 mg DAILY SUSI Administration Aspirin 81 mg 01/22/25 09:00 01/25/25 09:11 Aspirin 81 Mg Enteric Tablet PO 81 mg DAILY SUSI Administration Atorvastatin Calcium 80 mg 01/22/25 09:00 01/25/25 09:11 Atorvastatin 40 Mg Tablet PO 80 mg DAILY SUSI Administration Clopidogrel Bisulfate 75 mg 01/22/25 09:00 01/25/25 09:11 Clopidogrel Bisulfate 75 Mg Tablet PO 75 mg QAM SUSI Administration Divalproex Sodium 500 mg 01/22/25 17:36 Divalproex Sodium Er 500 Mg Tab.24h PO BID PRN Headache Enoxaparin Sodium 40 mg 01/21/25 09:00 01/25/25 09:11 Enoxaparin 40 Mg/0.4 Ml Syringe SUB-Q 40 mg DAILY SUSI Administration Fluticasone Propionate 1 - 2 spray 01/20/25 07:18 Fluticasone Propionate 0.05% Na Spr 16 Gm Btl (*Bkc) NASAL DAILY PRN Nasal Congestion Hydrochlorothiazide 25 mg 01/23/25 09:00 01/25/25 09:11 Hydrochlorothiazide 12.5 Mg Capsule PO 25 mg QAM SUSI Administration Meclizine HCl 25 mg 01/24/25 22:00 01/25/25 05:14 Meclizine Hcl 25 Mg Tablet PO 25 mg Q8HR SUSI Administration Metoprolol Succinate 50 mg 01/23/25 09:00 01/25/25 09:10 Metoprolol Succinate Ext Rel 50 Mg Tabcr PO 50 mg DAILY SUSI Administration Montelukast Sodium 10 mg 01/20/25 09:00 01/25/25 09:11 Montelukast Sodium 10 Mg Tablet PO 10 mg QAM SUSI Administration Ondansetron HCl 4 mg 01/23/25 11:33 01/25/25 10:04 Ondansetron Hcl Odt 4 Mg Tablet PO 4 mg Q6H PRN Administration Nausea And Vomiting Scopolamine 1 patch 01/23/25 16:25 01/23/25 17:40 Scopolamine 1 Mg Patch TRANSDERM 1 patch Q72HR SUSI Administration Tamsulosin HCl 0.4 mg 01/21/25 09:00 01/25/25 09:11 Tamsulosin Hcl 0.4 Mg Capsule BY MOUTH 0.4 mg QAM SUSI Administration Radiology Results: ITS Impressions Chest X-Ray 01/19/25 17:55 Impression: No acute cardiopulmonary abnormality. Head/Neck CTA 01/19/25 20:25 IMPRESSION: 1. No evident atherosclerotic plaque with 0% stenosis of the right and left carotid bulbs relative to normal distal artery lumen diameter (NASCET criteria). 2. Unremarkable cerebral CT angiogram with no hemodynamically significant stenosis, aneurysm or thrombosis. 3. Mild scattered white matter hypoattenuation consistent with chronic small vessel ischemic disease. No acute intracranial process. Brain MRI 01/21/25 13:04 IMPRESSION: 1. Acute right cerebellar infarct. 2. Additional scattered nonspecific periventricular predominant white matter T2 hyperintensity consistent with chronic small vessel ischemic disease. Labs Labs: Laboratory Results - last 24 hr 01/24/25 01/25/25 05:12 05:07 WBC 10.6 H RBC 5.33 Hgb 16.4 Hct 51.6 MCV 96.8 D MCH 30.8 MCHC 31.8 L RDW 13.7 Plt Count 225 MPV 11.5 H Sodium 135 L Potassium 3.4 Chloride 98 Carbon Dioxide 29 Anion Gap 8 BUN 21 H Creatinine 0.94 Estim Creat Clear Calc 85 Estimated GFR > 60 Glucose 95 Calcium 8.8 Total Bilirubin 1.1 AST 56 ALT 56 H Alkaline Phosphatase 70 Total Protein 7.3 Albumin 4.1 Quality VTE Prophylaxis VTE prophylaxis: pharmacologic ordered ( Lovenox)
[2025-01-25] MEDS: diazePAM INJ (*CRX) 10 MG/2 ML SYRINGE 2.5 MG IV PUSH (15:03)
[2025-01-25 17:51] LABS: Hematocrit 51.3 % (42.0-52.0); Hemoglobin 17.0 g/dL (14.0-18.0); Mean Corpuscular HGB Conc 33.1 g/dl (32-36); Mean Corpuscular Hemoglobin 31.1 pg (26-34); Mean Corpuscular Volume 94.0 fl (80-100); Platelet Count Result 240 k/mm3 (150-375); Red Blood Count 5.46 M/mm3 (4.6-6.20); White Blood Count 12.4 K/mm3 (4.5-10.0)
[2025-01-26 04:25] VITALS: BP 133/79; PULSE 80; RESP 20; TEMP 35.9; O2SAT 92
[2025-01-26 05:33] LABS: Hematocrit 50.7 % (42.0-52.0); Hemoglobin 16.9 g/dL (14.0-18.0); Immature Granulocyte Percent A 0.5 % (0-0.5); Lymphocytes Absolute Auto 1.64 K/mm3 (0.9-3.2); Mean Corpuscular HGB Conc 33.3 g/dl (32-36); Mean Corpuscular Hemoglobin 31.3 pg (26-34); Mean Corpuscular Volume 93.9 fl (80-100); Nucleated Red Blood Cells Absolute Auto 0.000 K/mm3 (0.0-0.012); Nucleated Red Blood Cells Perc 0.0 % (0.0-0.2); Platelet Count Result 228 k/mm3 (150-375); Red Blood Count 5.40 M/mm3 (4.6-6.20); White Blood Count 13.0 K/mm3 (4.5-10.0)
[2025-01-26] MEDS: MECLIZINE HCL 25 MG TABLET PO ×3 (05:35→20:39)
[2025-01-26 05:48] LABS: Alanine Aminotransferase 79 U/L (6-50); Albumin Level 4.3 g/dL (3.5-5.1); Alkaline Phosphatase 76 U/L (38-126); Anion Gap 8 mmol/L (4-12); Aspartate Amino Transferase 69 U/L (17-59); Bilirubin,Total 1.6 mg/dL (0.2-1.3); Blood Urea Nitrogen 24 mg/dL (9-20); Calcium 8.9 mg/dL (8.4-10.2); Carbon Dioxide 27 mmol/L (22-30); Chloride 99 mmol/L (98-107); Estimated CRCL calculation 86 ml/min; Estimated Glomerular Filt Rate > 60; Glucose 107 mg/dL (65-110); Magnesium 2.1 mg/dL (1.6-2.3); Potassium 3.3 mmol/L (3.4-5.0); Sodium 134 mmol/L (137-145); Total Protein 7.7 g/dL (6.3-8.2)
[2025-01-26] MEDS: TAMSULOSIN HCL 0.4 MG CAPSULE BY MOUTH (09:21)
[2025-01-26] MEDS: ATORVASTATIN 40 MG TABLET 80 MG PO (09:21)
[2025-01-26] MEDS: CLOPIDOGREL BISULFATE 75 MG TABLET PO (09:21)
[2025-01-26] MEDS: ASPIRIN 81 MG ENTERIC TABLET PO (09:21)
[2025-01-26] MEDS: SCOPOLAMINE 1 MG PATCH 1 PATCH TRANSDERM (09:21)
[2025-01-26 09:22] VITALS: PULSE 80
[2025-01-26] MEDS: ENOXAPARIN 40 MG/0.4 ML SYRINGE SUB-Q (09:22)
[2025-01-26] MEDS: MONTELUKAST SODIUM 10 MG TABLET PO (09:22)
[2025-01-26] MEDS: METOPROLOL SUCCINATE EXT REL 50 MG TABCR PO (09:22)
--- NOTE | 2025-01-26 09:25 | PCNWS ---
Weekly nutritional screen. Patient is tolerating current Heart healthy diet with adequate intake, 90-100%. No weight loss reported. No nutritional needs at this time.
--- NOTE | 2025-01-26 12:32 | PM.IMPN ---
Progress Note: A&P Assessment and Plan (1) Acute cerebrovascular accident (CVA) due to occlusion of right cerebellar artery: Code(s): I63.541 - Cerebral infarction due to unspecified occlusion or stenosis of right cerebellar artery Status: Acute Plan 1. Acute right cerebellar infarct presented with nausea and dry heaving associated with vertiginous signs for 4 days MRI brain shows acute right cerebral infarct Continue aspirin/Plavix/Lipitor Echo echo shows EF 60-65 with a or motion abnormality He needs an event monitor upon discharge Physical therapy recommends outpatient physical therapy Encouraged to get a sleep study as outpatient Repeat MRI brain showed stable brain edema symptoms improving and monitor 2. hypertension continue amlodipine and hydrochlorothiazide BP reviewed and stable 3. obesity weight loss recommended as outpatient 4. asthma continue albuterol and Flonase as needed continue montelukast no signs of acute exacerbation 5. enlarged prostate continue tamsulosin 6. Vertigo with associated nausea and vomiting if patient attempts to ambulate started on scopolamine patch yesterday and PRN Zofran add scheduled meclizine 25 mg Q8 hrs neuro recommends patient to go to acute rehab, will discuss with care coordination 7. Disposition Please order event Monitor for 7 days physical therapy as outpatient PCP follow-up awaiting rehab placement Subjective Date/time seen: 01/26/25 12:32 Interval history: Comfortable at bedside patient noted vertigo adn nausea has markedly improved Review of Systems Review of Systems: All systems reviewed & are unremarkable except as noted in HPI and below Exam Narrative: General: well appearing, appears stated age. HEENT: normocephalic, . Mucous membranes moist. EOMI, PERRLA, bilateral sclera anicteric, no conjunctival injection. Neck supple without JVD, lymphadenopathy, or bruit. Abrasion to left temporal Respiratory: clear to ascultation bilaterally. No rales/rhonic/wheezes. Cardiovascular: Regular rate and rhythm, normal S1-S2 upon ascultation. No murmurs, rubs, or clicks. PMI is nondisplaced, capillary refill less than 3 second. Abdomen: Soft, round, no pulsatile masses, nondistended and nontender. No rebound, no guarding. No CVA tenderness, no hepatosplenomegaly. Bowel sounds present to all four quadrants. No high pitch or tinkling sounds, resonant to percussion. Extremities: No cyanosis, clubbing, or edema present. Pulses are palpable 2/2. Active ROM to all four extremities. Neuro: Alert and orientated x 4. PERRLA. Cranial nerves 2-12 intact without focal deficit. Skin: Warm, dry, and intact, without rash, erythema, or lesion. Psych: pleasant, cooperative, normal speech, normal affect, no hallucinations, no dysarthia Objective Data Vital Signs Vital Signs: Vital Signs - 24 hr 01/25/25 13:35 01/25/25 14:00 01/25/25 18:12 Temperature 97.7 F Pulse Rate 79 80 Respiratory Rate 18 18 Blood Pressure 135/73 132/86 Pulse Oximetry 100 93 Oxygen Delivery Room Air 01/25/25 18:12 01/25/25 18:13 01/25/25 20:00 Temperature Pulse Rate 83 98 77 Respiratory Rate 18 20 16 Blood Pressure 133/89 138/86 Pulse Oximetry 91 91 92 Oxygen Delivery Room Air 01/25/25 20:19 01/26/25 04:25 01/26/25 09:22 Temperature 96.9 F L 96.6 F L Pulse Rate 77 80 80 Respiratory Rate 16 20 Blood Pressure 111/57 L 133/79 Pulse Oximetry 92 92 Oxygen Delivery Intake/Output Intake/Output: Intake & Output 01/23/25 01/24/25 01/25/25 01/26/25 23:59 23:59 23:59 23:59 Intake Total 2320 490 1470 462 Output Total 400 1200 1225 Balance 1920 -710 245 462 Meds/Results Medications: Active Medications Generic Name Dose Route Start Last Admin Trade Name Freq PRN Reason Stop Dose Admin Acetaminophen 650 mg 01/20/25 20:27 01/24/25 08:00 Acetaminophen 325 Mg Tablet PO 650 mg Q4H PRN Administration Pain Rated 1-3 Albuterol 2 puff 01/20/25 07:18 Albuterol Sulfate (*Sp) Aerosol 1 Puff INHALATION Q4HRT PRN Shortness Of Breath Or Wheezing Amlodipine Besylate 10 mg 01/23/25 09:00 01/26/25 09:21 Amlodipine Besylate 10 Mg Tablet BY MOUTH 10 mg DAILY USSI Administration Aspirin 81 mg 01/22/25 09:00 01/26/25 09:21 Aspirin 81 Mg Enteric Tablet PO 81 mg DAILY SUSI Administration Atorvastatin Calcium 80 mg 01/22/25 09:00 01/26/25 09:21 Atorvastatin 40 Mg Tablet PO 80 mg DAILY SUSI Administration Clopidogrel Bisulfate 75 mg 01/22/25 09:00 01/26/25 09:21 Clopidogrel Bisulfate 75 Mg Tablet PO 75 mg QAM SUSI Administration Dexamethasone Sodium Phosphate 4 mg 01/26/25 08:00 01/26/25 09:23 Dexamethasone Sod Phos Inj 4 Mg/Ml Vial IV PUSH 4 mg Q6HR SUSI Administration Divalproex Sodium 500 mg 01/22/25 17:36 Divalproex Sodium Er 500 Mg Tab.24h PO BID PRN Headache Enoxaparin Sodium 40 mg 01/21/25 09:00 01/26/25 09:22 Enoxaparin 40 Mg/0.4 Ml Syringe SUB-Q 40 mg DAILY SUSI Administration Fluticasone Propionate 1 - 2 spray 01/20/25 07:18 Fluticasone Propionate 0.05% Na Spr 16 Gm Btl (*Bkc) NASAL DAILY PRN Nasal Congestion Hydrochlorothiazide 25 mg 01/23/25 09:00 01/26/25 09:21 Hydrochlorothiazide 12.5 Mg Capsule PO 25 mg QAM SUSI Administration Meclizine HCl 25 mg 01/24/25 22:00 01/26/25 05:35 Meclizine Hcl 25 Mg Tablet PO 25 mg Q8HR SUSI Administration Metoprolol Succinate 50 mg 01/23/25 09:00 01/26/25 09:22 Metoprolol Succinate Ext Rel 50 Mg Tabcr PO 50 mg DAILY SUSI Administration Montelukast Sodium 10 mg 01/20/25 09:00 01/26/25 09:22 Montelukast Sodium 10 Mg Tablet PO 10 mg QAM SUSI Administration Ondansetron HCl 4 mg 01/23/25 11:33 01/25/25 10:04 Ondansetron Hcl Odt 4 Mg Tablet PO 4 mg Q6H PRN Administration Nausea And Vomiting Scopolamine 1 patch 01/23/25 16:25 01/26/25 09:21 Scopolamine 1 Mg Patch TRANSDERM 1 patch Q72HR SUSI Administration Tamsulosin HCl 0.4 mg 01/21/25 09:00 01/26/25 09:21 Tamsulosin Hcl 0.4 Mg Capsule BY MOUTH 0.4 mg QAM SUSI Administration Radiology Results: ITS Impressions Chest X-Ray 01/19/25 17:55 Impression: No acute cardiopulmonary abnormality. Head/Neck CTA 01/19/25 20:25 IMPRESSION: 1. No evident atherosclerotic plaque with 0% stenosis of the right and left carotid bulbs relative to normal distal artery lumen diameter (NASCET criteria). 2. Unremarkable cerebral CT angiogram with no hemodynamically significant stenosis, aneurysm or thrombosis. 3. Mild scattered white matter hypoattenuation consistent with chronic small vessel ischemic disease. No acute intracranial process. Brain MRI 01/25/25 15:53 IMPRESSION: 1. Early subacute right cerebellar infarct with no significant interval change in local mass effect resulting from the associated cytotoxic edema. Labs Labs: Laboratory Results - last 24 hr 01/25/25 01/26/25 17:46 05:29 WBC 12.4 H 13.0 H RBC 5.46 5.40 Hgb 17.0 16.9 Hct 51.3 50.7 MCV 94.0 93.9 MCH 31.1 31.3 MCHC 33.1 33.3 RDW 13.4 13.3 Plt Count 240 228 MPV 11.3 H 11.2 H Immature Gran % (Auto) 0.5 Neut % (Auto) 75.2 H Lymph % (Auto) 12.6 L [place] % (Auto) 10.7 H Eos % (Auto) 0.6 Baso % (Auto) 0.4 Lymph # (Auto) 1.64 [place] # (Auto) 1.4 H Eos # (Auto) 0.1 Baso # (Auto) 0.1 Abs Immat Gran (auto) 0.07 H Absolute Neuts (auto) 9.8 H Absolute Nucleated RBC 0.000 Nucleated RBC % 0.0 Sodium 134 L Potassium 3.3 L Chloride 99 Carbon Dioxide 27 Anion Gap 8 BUN 24 H Creatinine 0.93 Estim Creat Clear Calc 86 Estimated GFR > 60 Glucose 107 Lactic Acid 0.8 Calcium 8.9 Magnesium 2.1 Total Bilirubin 1.6 H AST 69 H ALT 79 H Alkaline Phosphatase 76 Total Protein 7.7 Albumin 4.3 Quality VTE Prophylaxis VTE prophylaxis: pharmacologic ordered ( Lovenox)
[2025-01-26 13:53] VITALS: BP 125/80; PULSE 88; RESP 17; TEMP 36; O2SAT 95
[2025-01-26 13:55] VITALS: BP 123/81
[2025-01-26 13:58] VITALS: BP 128/79; PULSE 104; O2SAT 92
[2025-01-26] MEDS: SODIUM CHLORIDE 0.9% IV 500 ML IV CONT (17:07)
[2025-01-26 18:07] LABS: Hematocrit 51.1 % (42.0-52.0); Hemoglobin 17.3 g/dL (14.0-18.0); Mean Corpuscular HGB Conc 33.9 g/dl (32-36); Mean Corpuscular Hemoglobin 31.5 pg (26-34); Mean Corpuscular Volume 92.9 fl (80-100); Platelet Count Result 244 k/mm3 (150-375); Red Blood Count 5.50 M/mm3 (4.6-6.20); White Blood Count 10.3 K/mm3 (4.5-10.0)
[2025-01-26 20:00] VITALS: BP 112/74; BP 125/89; BP 131/83; PULSE 102; PULSE 88; PULSE 96; RESP 18; TEMP 36.3; O2SAT 92; O2SAT 93; O2SAT 96
[2025-01-27] VITALS (8 sets, daily range): BP systolic 95–127; BP diastolic 69–87; PULSE 74–80; RESP 16–20; TEMP 36.3–36.8; O2SAT 93–95
[2025-01-27] MEDS: MECLIZINE HCL 25 MG TABLET PO ×3 (06:01→21:05)
[2025-01-27 06:20] LABS: Hematocrit 51.3 % (42.0-52.0); Hemoglobin 16.6 g/dL (14.0-18.0); Immature Granulocyte Percent A 0.7 % (0-0.5); Lymphocytes Absolute Auto 1.95 K/mm3 (0.9-3.2); Mean Corpuscular HGB Conc 32.4 g/dl (32-36); Mean Corpuscular Hemoglobin 30.9 pg (26-34); Mean Corpuscular Volume 95.4 fl (80-100); Nucleated Red Blood Cells Absolute Auto 0.000 K/mm3 (0.0-0.012); Nucleated Red Blood Cells Perc 0.0 % (0.0-0.2); Platelet Count Result 245 k/mm3 (150-375); Red Blood Count 5.38 M/mm3 (4.6-6.20); White Blood Count 11.4 K/mm3 (4.5-10.0)
[2025-01-27 06:40] LABS: Alanine Aminotransferase 71 U/L (6-50); Albumin Level 4.2 g/dL (3.5-5.1); Alkaline Phosphatase 79 U/L (38-126); Anion Gap 9 mmol/L (4-12); Aspartate Amino Transferase 51 U/L (17-59); Bilirubin,Total 1.4 mg/dL (0.2-1.3); Blood Urea Nitrogen 23 mg/dL (9-20); Calcium 8.8 mg/dL (8.4-10.2); Carbon Dioxide 25 mmol/L (22-30); Chloride 101 mmol/L (98-107); Estimated CRCL calculation 87 ml/min; Estimated Glomerular Filt Rate > 60; Glucose 109 mg/dL (65-110); Magnesium 2.2 mg/dL (1.6-2.3); Potassium 3.1 mmol/L (3.4-5.0); Sodium 135 mmol/L (137-145); Total Protein 7.3 g/dL (6.3-8.2)
[2025-01-27] MEDS: TAMSULOSIN HCL 0.4 MG CAPSULE BY MOUTH (08:48)
[2025-01-27] MEDS: CLOPIDOGREL BISULFATE 75 MG TABLET PO (08:48)
[2025-01-27] MEDS: ASPIRIN 81 MG ENTERIC TABLET PO (08:48)
[2025-01-27] MEDS: ATORVASTATIN 40 MG TABLET 80 MG PO (08:48)
[2025-01-27] MEDS: METOPROLOL SUCCINATE EXT REL 50 MG TABCR PO (08:48)
[2025-01-27] MEDS: MONTELUKAST SODIUM 10 MG TABLET PO (08:48)
[2025-01-27] MEDS: ENOXAPARIN 40 MG/0.4 ML SYRINGE SUB-Q (08:49)
[2025-01-28] MEDS: MECLIZINE HCL 25 MG TABLET PO ×3 (05:16→21:06)
[2025-01-28 05:38] LABS: Alanine Aminotransferase 67 U/L (6-50); Albumin Level 4.0 g/dL (3.5-5.1); Alkaline Phosphatase 91 U/L (38-126); Anion Gap 9 mmol/L (4-12); Aspartate Amino Transferase 45 U/L (17-59); Bilirubin,Total 1.4 mg/dL (0.2-1.3); Blood Urea Nitrogen 25 mg/dL (9-20); Calcium 8.9 mg/dL (8.4-10.2); Carbon Dioxide 27 mmol/L (22-30); Chloride 102 mmol/L (98-107); Estimated CRCL calculation 78 ml/min; Estimated Glomerular Filt Rate > 60; Glucose 96 mg/dL (65-110); Potassium 3.4 mmol/L (3.4-5.0); Sodium 138 mmol/L (137-145); Total Protein 7.2 g/dL (6.3-8.2)
[2025-01-28 06:00] VITALS: BP 118/78; PULSE 77; RESP 16; TEMP 35.7; O2SAT 93
[2025-01-28] MEDS: TAMSULOSIN HCL 0.4 MG CAPSULE BY MOUTH (09:24)
[2025-01-28] MEDS: MONTELUKAST SODIUM 10 MG TABLET PO (09:24)
[2025-01-28] MEDS: ATORVASTATIN 40 MG TABLET 80 MG PO (09:25)
[2025-01-28] MEDS: CLOPIDOGREL BISULFATE 75 MG TABLET PO (09:25)
[2025-01-28] MEDS: ASPIRIN 81 MG ENTERIC TABLET PO (09:25)
[2025-01-28 09:26] VITALS: PULSE 96
[2025-01-28] MEDS: ENOXAPARIN 40 MG/0.4 ML SYRINGE SUB-Q (09:26)
[2025-01-28] MEDS: METOPROLOL SUCCINATE EXT REL 50 MG TABCR PO (09:26)
--- NOTE | 2025-01-28 11:29 | PM.IMPN ---
Progress Note: A&P Assessment and Plan (1) Acute cerebrovascular accident (CVA) due to occlusion of right cerebellar artery: Code(s): I63.541 - Cerebral infarction due to unspecified occlusion or stenosis of right cerebellar artery Status: Acute Plan 1. Acute right cerebellar infarct presented with nausea and dry heaving associated with vertiginous signs for 4 days MRI brain shows acute right cerebral infarct Continue aspirin/Plavix/Lipitor Echo echo shows EF 60-65 with a or motion abnormality He needs an event monitor upon discharge Physical therapy recommends outpatient physical therapy Encouraged to get a sleep study as outpatient Repeat MRI brain showed stable brain edema symptoms improving and monitor still having gait imbalance, vertigo resolved 2. hypertension continue amlodipine and hydrochlorothiazide BP reviewed and stable 3. obesity weight loss recommended as outpatient 4. asthma continue albuterol and Flonase as needed continue montelukast no signs of acute exacerbation 5. enlarged prostate continue tamsulosin 6. Vertigo resolved started on scopolamine patch yesterday and PRN Zofran add scheduled meclizine 25 mg Q8 hrs neuro recommends patient to go to acute rehab, will discuss with care coordination 7. Disposition Please order event Monitor for 7 days physical therapy as outpatient PCP follow-up awaiting rehab placement Subjective Date/time seen: 01/28/25 11:29 Interval history: Comfortable at bedside patient noted Vertigo and nausea resolved still having gait imbalance Review of Systems Review of Systems: All systems reviewed & are unremarkable except as noted in HPI and below Exam Narrative: General: well appearing, appears stated age. HEENT: normocephalic, . Mucous membranes moist. EOMI, PERRLA, bilateral sclera anicteric, no conjunctival injection. Neck supple without JVD, lymphadenopathy, or bruit. Abrasion to left temporal Respiratory: clear to ascultation bilaterally. No rales/rhonic/wheezes. Cardiovascular: Regular rate and rhythm, normal S1-S2 upon ascultation. No murmurs, rubs, or clicks. PMI is nondisplaced, capillary refill less than 3 second. Abdomen: Soft, round, no pulsatile masses, nondistended and nontender. No rebound, no guarding. No CVA tenderness, no hepatosplenomegaly. Bowel sounds present to all four quadrants. No high pitch or tinkling sounds, resonant to percussion. Extremities: No cyanosis, clubbing, or edema present. Pulses are palpable 2/2. Active ROM to all four extremities. Neuro: Alert and orientated x 4. PERRLA. Cranial nerves 2-12 intact without focal deficit. Skin: Warm, dry, and intact, without rash, erythema, or lesion. Psych: pleasant, cooperative, normal speech, normal affect, no hallucinations, no dysarthia Objective Data Vital Signs Vital Signs: Vital Signs - 24 hr 01/27/25 14:00 01/27/25 15:32 01/27/25 20:00 Temperature 97.6 F Pulse Rate 80 Respiratory Rate 18 Blood Pressure 122/81 95/72 L Pulse Oximetry 93 Oxygen Delivery Room Air 01/27/25 21:11 01/27/25 22:26 01/28/25 06:00 Temperature 97.3 F L 96.2 F L Pulse Rate 76 77 Respiratory Rate 20 16 Blood Pressure 121/85 118/78 Pulse Oximetry 94 94 93 Oxygen Delivery Room Air 01/28/25 08:00 01/28/25 09:26 Temperature Pulse Rate 96 Respiratory Rate Blood Pressure Pulse Oximetry Oxygen Delivery Room Air Intake/Output Intake/Output: Intake & Output 01/25/25 01/26/25 01/27/25 01/28/25 23:59 23:59 23:59 23:59 Intake Total 1470 1991 920 440 Output Total 1225 350 Balance 245 1991 570 440 Meds/Results Medications: Active Medications Generic Name Dose Route Start Last Admin Trade Name Freq PRN Reason Stop Dose Admin Acetaminophen 650 mg 01/20/25 20:27 01/24/25 08:00 Acetaminophen 325 Mg Tablet PO 650 mg Q4H PRN Administration Pain Rated 1-3 Albuterol 2 puff 01/20/25 07:18 Albuterol Sulfate (*Sp) Aerosol 1 Puff INHALATION Q4HRT PRN Shortness Of Breath Or Wheezing Amlodipine Besylate 10 mg 01/23/25 09:00 01/28/25 09:25 Amlodipine Besylate 10 Mg Tablet BY MOUTH 10 mg DAILY SUSI Administration Aspirin 81 mg 01/22/25 09:00 01/28/25 09:25 Aspirin 81 Mg Enteric Tablet PO 81 mg DAILY SUSI Administration Atorvastatin Calcium 80 mg 01/22/25 09:00 01/28/25 09:25 Atorvastatin 40 Mg Tablet PO 80 mg DAILY SUSI Administration Clopidogrel Bisulfate 75 mg 01/22/25 09:00 01/28/25 09:25 Clopidogrel Bisulfate 75 Mg Tablet PO 75 mg QAM SUSI Administration Divalproex Sodium 500 mg 01/22/25 17:36 Divalproex Sodium Er 500 Mg Tab.24h PO BID PRN Headache Enoxaparin Sodium 40 mg 01/21/25 09:00 01/28/25 09:26 Enoxaparin 40 Mg/0.4 Ml Syringe SUB-Q 40 mg DAILY SUSI Administration Fluticasone Propionate 1 - 2 spray 01/20/25 07:18 Fluticasone Propionate 0.05% Na Spr 16 Gm Btl (*Bkc) NASAL DAILY PRN Nasal Congestion Hydrochlorothiazide 25 mg 01/23/25 09:00 01/28/25 09:24 Hydrochlorothiazide 12.5 Mg Capsule PO 25 mg QAM SUSI Administration Meclizine HCl 25 mg 01/24/25 22:00 01/28/25 05:16 Meclizine Hcl 25 Mg Tablet PO 25 mg Q8HR SUSI Administration Metoprolol Succinate 50 mg 01/23/25 09:00 01/28/25 09:26 Metoprolol Succinate Ext Rel 50 Mg Tabcr PO 50 mg DAILY SUSI Administration Montelukast Sodium 10 mg 01/20/25 09:00 01/28/25 09:24 Montelukast Sodium 10 Mg Tablet PO 10 mg QAM SUSI Administration Ondansetron HCl 4 mg 01/23/25 11:33 01/25/25 10:04 Ondansetron Hcl Odt 4 Mg Tablet PO 4 mg Q6H PRN Administration Nausea And Vomiting Scopolamine 1 patch 01/23/25 16:25 01/26/25 09:21 Scopolamine 1 Mg Patch TRANSDERM 1 patch Q72HR SUSI Administration Tamsulosin HCl 0.4 mg 01/21/25 09:00 01/28/25 09:24 Tamsulosin Hcl 0.4 Mg Capsule BY MOUTH 0.4 mg QAM SUSI Administration Radiology Results: ITS Impressions Chest X-Ray 01/19/25 17:55 Impression: No acute cardiopulmonary abnormality. Head/Neck CTA 01/19/25 20:25 IMPRESSION: 1. No evident atherosclerotic plaque with 0% stenosis of the right and left carotid bulbs relative to normal distal artery lumen diameter (NASCET criteria). 2. Unremarkable cerebral CT angiogram with no hemodynamically significant stenosis, aneurysm or thrombosis. 3. Mild scattered white matter hypoattenuation consistent with chronic small vessel ischemic disease. No acute intracranial process. Brain MRI 01/25/25 15:53 IMPRESSION: 1. Early subacute right cerebellar infarct with no significant interval change in local mass effect resulting from the associated cytotoxic edema. Labs Labs: Laboratory Results - last 24 hr 01/28/25 04:54 Sodium 138 Potassium 3.4 Chloride 102 Carbon Dioxide 27 Anion Gap 9 BUN 25 H Creatinine 1.04 Estim Creat Clear Calc 78 Estimated GFR > 60 Glucose 96 Calcium 8.9 Total Bilirubin 1.4 H AST 45 ALT 67 H Alkaline Phosphatase 91 Total Protein 7.2 Albumin 4.0 Quality VTE Prophylaxis VTE prophylaxis: pharmacologic ordered ( Lovenox)
[2025-01-28 14:00] VITALS: BP 118/79; PULSE 84; RESP 18; TEMP 36.4; O2SAT 94
[2025-01-28 20:00] VITALS: PULSE 82; RESP 16; O2SAT 94
[2025-01-28 20:53] VITALS: BP 116/77; PULSE 82; RESP 16; TEMP 36.4; O2SAT 94
[2025-01-29 05:02] VITALS: BP 127/79; PULSE 76; RESP 16; TEMP 36.5; O2SAT 92
[2025-01-29] MEDS: MECLIZINE HCL 25 MG TABLET PO (05:10)
[2025-01-29 06:05] LABS: Alanine Aminotransferase 57 U/L (6-50); Albumin Level 4.1 g/dL (3.5-5.1); Alkaline Phosphatase 91 U/L (38-126); Anion Gap 9 mmol/L (4-12); Aspartate Amino Transferase 37 U/L (17-59); Bilirubin,Total 2.0 mg/dL (0.2-1.3); Blood Urea Nitrogen 22 mg/dL (9-20); Calcium 9.0 mg/dL (8.4-10.2); Carbon Dioxide 28 mmol/L (22-30); Chloride 101 mmol/L (98-107); Estimated CRCL calculation 80 ml/min; Estimated Glomerular Filt Rate > 60; Glucose 100 mg/dL (65-110); Potassium 3.4 mmol/L (3.4-5.0); Sodium 138 mmol/L (137-145); Total Protein 7.3 g/dL (6.3-8.2)
[2025-01-29 08:00] VITALS: O2SAT 92
[2025-01-29] MEDS: SCOPOLAMINE 1 MG PATCH 1 PATCH TRANSDERM (08:17)
[2025-01-29 08:19] VITALS: PULSE 80
[2025-01-29] MEDS: ATORVASTATIN 40 MG TABLET 80 MG PO (08:19)
[2025-01-29] MEDS: ASPIRIN 81 MG ENTERIC TABLET PO (08:19)
[2025-01-29] MEDS: CLOPIDOGREL BISULFATE 75 MG TABLET PO (08:19)
[2025-01-29] MEDS: METOPROLOL SUCCINATE EXT REL 50 MG TABCR PO (08:19)
[2025-01-29] MEDS: ENOXAPARIN 40 MG/0.4 ML SYRINGE SUB-Q (08:19)
[2025-01-29] MEDS: MONTELUKAST SODIUM 10 MG TABLET PO (08:20)
[2025-01-29] MEDS: TAMSULOSIN HCL 0.4 MG CAPSULE BY MOUTH (08:20)
--- NOTE | 2025-01-29 12:44 | P.DS_ITS ---
DS: Admitting Diagnosis Discharge Date 01/29/25 Admitting Diagnosis nausea and dry heaves vertiginous sign unsteady DS: Discharge Diagnosis Discharge Diagnosis (1) Acute cerebrovascular accident (CVA) due to occlusion of right cerebellar artery: Code(s): I63.541 - Cerebral infarction due to unspecified occlusion or stenosis of right cerebellar artery Status: Acute DS: Summary Hospital Course Hospital Course: History of Present Illness 64-year-old male with a history of hypertension, BPH, asthma, and obesity presented with 4 days of vertigo, nausea, dry heaving, and unsteady gait. Symptoms began on 01/17/2025. He reported room-spinning vertigo, worsened by head movement or positional changes, and significant gait imbalance. No prior similar episodes, no recent URI, and no history of stroke or seizure. 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 Initial ED evaluation: * Vitals stable * CT/CTA head and neck: No acute findings, mild chronic small vessel ischemic changes * MRI brain: Large acute right cerebellar infarct * Labs: WBC mildly elevated, BMP unremarkable, troponin negative * EKG: Sinus rhythm * Echo: EF 60-65%, no wall motion abnormality * Event monitor on discharge * Physical therapy involved Neurologic Exam (Summary) * Ataxic gait, imbalance with ambulation * No focal motor or sensory deficits reported * No cranial nerve deficits reported Assessment Acute right cerebellar infarct * ICD-10:?I63.541 (Cerebral infarction due to unspecified occlusion or stenosis of right cerebellar artery) * MRI confirmed large right cerebellar infarct. * Symptoms: Vertigo, nausea, vomiting, ataxia.Hypertension * ICD-10:?I10 (Essential hypertension) * Well-controlled on current regimen.Other comorbidities: * Asthma (J45.909), Obesity (E66.9), BPH (N40.1) Plan * Secondary stroke prevention: * Continue dual antiplatelet therapy: Aspirin and Plavix (loading dose 300 mg, then 75 mg daily) * Continue high-intensity statin: Atorvastatin 80 mg daily * Blood pressure control: Continue amlodipine and hydrochlorothiazide * Monitor for risk factors (encourage smoking cessation, weight loss) * Symptom management: * For headache: Depakote ER 500 mg BID as needed * Continue meclizine and scopolamine as needed for vertigo * Rehabilitation: * Continue inpatient physical therapy * Outpatient PT referral upon discharge * Emphasize safety precautions due to ataxia * Cardiac monitoring: * Event monitor for 7 days post-discharge * Outpatient sleep study recommended * Lipid management: * Last LDL 80 mg/dL (goal <65, ideally <50) * Patient counseling: * Discussed prognosis and need for ongoing therapy * Advised that return to work may be delayed due to ataxia * Disposition: * Discharge home planned * Outpatient PT/OT per PT/OT recommendations * patient will have event monitor placed before discharge * F/u with PCP in 3-5 days * F/u with neurology as instructed Time Spent with Patient Time attestation: Total time spent providing and/or coordinating discharge services: DS: Data Data Completed and Pending Labs on day of discharge: Labs from last 24 hours 01/29/25 01/28/25 05:23 20:59 Sodium 138 Potassium 3.4 Chloride 101 Carbon Dioxide 28 Anion Gap 9 BUN 22 H Creatinine 1.01 Estim Creat Clear Calc 80 Estimated GFR > 60 Glucose 100 Calcium 9.0 Total Bilirubin 2.0 H AST 37 ALT 57 H Alkaline Phosphatase 91 Total Protein 7.3 Albumin 4.1 C. difficile (PCR) Pending Discharge Plan Discharge Attending physician on discharge: Remedios Squires Consulting providers: Janice Nance; Low Shane; Kimi Kevin Discharging Clinician: Remedios Squires Anticipated Discharge Date/Time: 01/22/25 16:25 [facility] Activity: unlimited Diet: regular Discharge Instructions: Per Care Coordination, patient to discharge with [facility] ([phone]) for PT/ OT and chcf services. Agency will call to arrange the initial visit. Continue aspirin 81 mg indefinitely Continue Plavix 75 mg daily for 19 days Continue atorvastatin 80 mg HS indefinitely Make sure you wear event monitor for 7 days Please follow physical therapy as outpatient Patient Instructions: How to Stop Smoking (ED), Ischemic Stroke (GEN) Patient Language: Greek Follow-up/Referrals: Gunner Wilson MD [Primary Care Provider, Internal Medicine] Referral Note: F/u with PCP in 3-5 days Janice Nance MD [Physician, Neurology] Referral Note: F/u with neurology as instructed Discharge Medications: New aspirin 81 mg Tablet,Delayed Release (Dr/Ec) 81 mg PO DAILY 30 Days Qty: 30 1RF atorvastatin 40 mg Tablet 80 mg PO DAILY 30 Days Qty: 60 0RF hydrochlorothiazide 12.5 mg Capsule 25 mg PO QAM 30 Days Qty: 60 1RF divalproex [Depakote ER] 500 mg Tablet Extended Release 24 Hr 500 mg PO BID PRN (Reason: Headache) 30 Days Qty: 30 0RF clopidogrel 75 mg Tablet 75 mg PO QAM 21 Days Qty: 21 0RF ondansetron 4 mg Tablet,Disintegrating 4 mg PO Q6H PRN (Reason: Nausea And Vomiting) 30 Days Qty: 10 0RF lisinopril 2.5 mg tablet 2.5 mg PO DAILY Qty: 30 1RF Continued fluticasone propionate [Flonase Allergy Relief] 50 mcg/actuation spray,suspension 1 - 2 spray NASAL DAILY PRN (Reason: nasal congestion) Qty: 48 0RF Rx Instructions: administer into each nostril montelukast 10 mg tablet 10 mg PO QAM metoprolol succinate 50 mg tablet extended release 24 hr See Rx Instructions .ROUTE .COMPLEX Qty: 90 2RF Dose Instruction: Take 1 tablet by mouth once daily Rx Instructions: Take 1 tablet by mouth once daily amlodipine 10 mg tablet See Rx Instructions .ROUTE .COMPLEX Qty: 90 2RF Dose Instruction: Take 1 tablet by mouth once daily Rx Instructions: Take 1 tablet by mouth once daily hydrochlorothiazide 25 mg tablet See Rx Instructions .ROUTE .COMPLEX Qty: 90 2RF Dose Instruction: Take 1 tablet by mouth once daily Rx Instructions: Take 1 tablet by mouth once daily tamsulosin 0.4 mg capsule See Rx Instructions .ROUTE .COMPLEX Qty: 90 2RF Dose Instruction: Take 1 capsule by mouth once daily Rx Instructions: Take 1 capsule by mouth once daily albuterol sulfate [ProAir HFA] 90 mcg/actuation HFA aerosol inhaler 2 puff INHALATION Q4H PRN (Reason: shortness of breath or wheezing) acetaminophen 325 mg capsule 650 mg PO Q4H PRN (Reason: pain) Rx Instructions: PAIN 1-3 aspirin 81 mg tablet,delayed release (DR/EC) 81 mg PO DAILY atorvastatin [Lipitor] 80 mg tablet 80 mg PO DAILY enoxaparin 40 mg/0.4 mL syringe 40 mg subcut DAILY divalproex [Depakote ER] 500 mg tablet extended release 24 hr 500 mg PO BID PRN (Reason: headache) meclizine [Dramamine (meclizine)] 25 mg tablet 25 mg PO Q8H ondansetron 4 mg tablet,disintegrating 4 mg PO Q6H PRN (Reason: nausea and vomiting) scopolamine base 1 mg over 3 days patch 3 day 1 patch transdermal Q72H clopidogrel 75 mg tablet 75 mg PO DAILY Date of admission: 01/22/25 15:40 Primary Care Provider: Gunner Wilson Admitting Provider: Merle Mann Attending physician on admission: Merle Mann Condition: Stable
--- NOTE | 2025-02-12 16:22 | WPDHOLTEREM ---
Holter/Event Monitor Holter/Event Monitor Date of procedure: 01/29/25 Holter/Event Procedure: 3-7 Day Holter Monitor Indications: Dizziness Conclusion: 1. 7 days holter monitor on 01/29/25. 2. Underlying rhythm is sinus rhythm. HR range 56-130 bpm; average 82 bpm. 3. There are rare premature supraventricular complexes, rare supraventricular couplets, and rare supraventricular triplets. No supraventricular tachycardia. 4. There are rare premature ventricular complexes and rare ventricular couplets. No ventricular tachycardia. 5. No significant pauses greater than 3 seconds. 6. Patient reports 32 episodes of symptoms of dizziness, lightheadedness, hand pain which demonstrate sinus rhythm, HR range 84-109 bpm with 2 episodes with PAC's and 4 episodes with PVC's.
== END 2025-01-29 14:22 | DRG 66 ==
LOC: ANHED 22:49 → ANH3MEDSUR 01-20 01:35
PROVIDERS: Emergency Medicine; Student in an Organized Health Care Education/Training Program; Admitting Provider Internal Medicine; Emergency Provider Emergency Medicine; PCP Emergency Medicine; Visit Provider Internal Medicine
DX: I63.541 Cerebral infarction due to unspecified occlusion or stenosis of right cerebellar artery (principal); R42 Dizziness and giddiness; R51.9 Headache, unspecified; E86.0 Dehydration; I10 Essential (primary) hypertension; J45.909 Unspecified asthma, uncomplicated; E66.9 Obesity, unspecified; N40.0 Benign prostatic hyperplasia without lower urinary tract symptoms; Z68.35 Body mass index [BMI] 35.0-35.9, adult; F17.210 Nicotine dependence, cigarettes, uncomplicated
CPT/HCPCS: 36415; 70496; 70498; 70551; 71046; 80053; 83605; 83735; 84484; 85025; 85027; 87045; 87046; 87427; 93005; 93242; 96372; 96374; 96375; 97110; 97161; 97165; 97166; 97530; 97535; 99285; A9270; C8929; G0378; J1100; J1650; J2405; J2765; J3360; J7030; J7040; Q9957; Q9967

== ENCOUNTER 2025-05-18 13:10 | Emergency (ER) | payer MEDICARE, SELFPAY ==
--- NOTE | ~2025-05-18 | XR_ITS ---
XR chest 2V 05/18/2025 18:00 Indication: Lower extremity edema Procedure: 2 view chest Comparison: 01/19/2025 Findings: Heart size normal. Right lung clear. Left basilar atelectasis. No focal pneumonia, significant effusion or pneumothorax. No acute osseous abnormality. Impression: 1: Left basilar atelectasis. Reviewed, dictated and finalized at location O. ICAL PROCESS OPERATOR Impression: 1: Left basilar atelectasis.
--- NOTE | ~2025-05-18 | US_ITS ---
EXAMINATION:US venous doppler LE BI INDICATION:Bilateral lower extremity swelling TECHNIQUE: Multiple grayscale, color flow and Doppler images of the bilateral lower extremity deep venous systems were obtained and reviewed. COMPARISON:No prior studies for comparison. FINDINGS: The common femoral, superficial femoral and popliteal veins demonstrate normal respiratory variation, augmentation and compressibility. Color flow is also seen within the posterior tibial, peroneal, greater saphenous and profunda veins. IMPRESSION: 1: No lower extremity deep venous thrombosis. Reviewed, dictated and finalized at location O. ERCIAL CARPENTER
--- OUTSIDE RECORDS SUMMARY | 2025-05-18 13:12 | XMS_ITS | Clinical Summary ---
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 He spent days in hospital. Medications albuterol sulfate HFA 108 (90 Base) MCG/ACT inhaler INHALE 2 PUFFS BY MOUTH EVERY 4 TO 6 HOURS NEEDED FOR SHORTNESS OF BREATH OR WHEEZING 1 Active amoxicillin 500 MG capsule TAKE 1 CAPSULE BY MOUTH THREE TIMES DAILY UNTIL GONE 1 Active fluticasone propionate 50 MCG/ACT nasal spray 1 spray by Nasal route daily. Active clotrimazole-beta methasone cream Apply topically 2 (two) times daily. Active ibuprofen 800 MG tabletIndications :Arthritis Take 1 tablet (800 mg total) by mouth 2 (two) times daily with meals. 90 tablet 1 1 Active montelukast 10 MG tabletIndications :Seasonal allergies Take 1 tablet (10 mg total) by mouth every evening. 90 tablet 1 1 Active hydroCHLOROthiazi de 25 MG tabletIndications :Uncontrolled hypertension Take 2 tablets (50 mg total) by mouth daily. 90 tablet 1 1 Active cephALEXin 500 MG capsule 1 Active amLODIPine 5 MG tabletIndications :Uncontrolled hypertension Take 1 tablet (5 mg total) by mouth daily. 90 tablet 1 Active Active Problems Problem Noted Date Diagnosed Date Uncontrolled hypertension 02/11/2021 Arthritis 02/11/2021 Mild intermittent asthma 02/11/2021 At risk for sleep apnea 02/11/2021 Obesity (BMI 35.0-39.9 without comorbidity) 01/23 Social History Tobacco Use Types Packs/Day Years Used Date Smoking Tobacco: Former Smokeless Tobacco: Never Alcohol Use Standard Drinks/Week Comments Never 0 (1 standard drink = 0.6 oz pur e alcohol) PHQ-2 Answer Date Recorded PHQ-2 Score - If the patient scores above 3, please move on to questions 3-9 0 02/11/2021 Sex and Gender Information Value Date Recorded Sex Assigned at Not on file Legal Sex Male 9:38 AM CDT Gender Identity Not on file Sexual Orientation Not on file Last Filed Vital Signs Vital Sign Reading Time Taken Comments Blood Pressure 160/110 02/28/2021 10:08 AM CDT Pulse 88 02/28/2021 9:49 AM CDT Temperature 36.6 C (97.9 F) 02/28/2021 9:49 AM CDT Respiratory Rate 16 02/28/2021 9:49 AM CDT Oxygen Saturation 95% 02/28/2021 9:49 AM CDT Inhaled Oxygen Concentration - - Weight 113.4 kg (250 lb) 02/28/2021 9:49 AM CDT Height 170.2 cm (5' 7) 02/28/2021 9:49 AM CDT Body Mass Index 39.16 02/28/2021 9:49 AM CDT Plan of Treatment Health Maintenance Due Date Last Done Comments Colorectal Cancer Screening Colonoscopy (10 Years) 1958 Hepatitis C 1976 DTaP, Tdap and Td Vaccines ( 1 - Tdap) 1977 Pneumococcal Vaccine: 50+ Ye ars (1 of 2 - PCV) 1977 Zoster Vaccines (1 of 2) 2008 RSV Immunization or 60+ Years (1 - Risk 60-74 years 1-dose series) 2018 COVID-19 Vaccine (1 - 2024-2 6 season) 2025 Influenza Adult (#1) 2025 Hepatitis A Vaccines Aged Out No long er eligible based on patient's age to complete this topic Meningococcal B Vaccine Aged Out No l onger eligible based on patient's age to complete this topic Meningococcal Vaccine Aged Out No connie joselo eligible based on patient's age to complete this topic RSV Immunizations Under 20 Months Aged Out No longer eligible based on patient's age to complete this topic Insurance [id number]
[2025-05-18 13:52] VITALS: BP 106/77; PULSE 80; RESP 16; TEMP 36.8; O2SAT 96
--- NOTE | 2025-05-18 17:31 | ECG_ITS ---
Test Date: 2025-05-18 18:42:17 Measurements Intervals [place] Rate: 83 P: 15 KS: 164 QRS: 0 QRSD: 86 T: 52 QT: 359 QTc: 423 Interpretive Statements SINUS RHYTHM CONSIDER ANTERIOR INFARCT, AGE INDETERMINATE CONSIDER INFERIOR INFARCT, AGE INDETERMINATE ABNORMAL ECG Compared to ECG 01/19/2025 17:38:23 No significant changes Electronically Signed On 05-18-2025 19:58:24 STEAM CLEANER by Carlos Hogan D.O.
--- NOTE | 2025-05-18 17:32 | ED_ITS ---
HPI - Extremity Problem General Chief complaint: Extremity Problem,Nontraumatic Stated complaint: fluid on his legs Time Seen by Provider: 05/18/25 17:25 Source: patient Mode of arrival: ambulatory Limitations: no limitations History of Present Illness HPI Narrative: This is a 65-year-old male that presents to the emergency department for lower extremity edema. Ongoing over the last couple of days. He does take hydrochlorothiazide. Has been taking as prescribed. Denies chest pain or shortness of breath. Related Data Home Medications ?Medication ?Instructions ?Recorded ?Confirmed ?Last Taken ?Type acetaminophen 325 mg capsule 650 mg PO Q4H PRN pain 02/13/25 Unknown History albuterol sulfate 90 mcg/actuation 2 puff inhalation Q 4H PRN 01/29/25 02/13/25 Unknown History aerosol inhaler (ProAir HFA) shortness of breath or wh eezing aspirin 81 mg tablet,delayed 81 mg PO DAILY 01/29/25 0 02/13/25 01/29/25 08:20 History release Allergies Allergy/AdvReac Type Severity Reaction Status Date / Time Tetanus Vaccines and Toxoid Allergy Mild unknown Verified 05/18/25 13:13 tetanus and diphtheria Allergy Unknown unknown Verified 05/18/25 13:13 toxoids Review of Systems 2 Review of Systems: All systems reviewed & are unremarkable except as noted in HPI and below PMFSH Past Medical History Medical History Asthma Social History Social History (Updated 02/13/25 @ 14:01 by Yoli Cervantes MA) Smoking packs per day: 0.5 Smoking cigarettes per day: 10.0 Years smoked: 17 Smoking pack-years: 8.50 Smoking status: Former smoker Tobacco type: cigarettes Second hand tobacco smoke exposure: No Smoking end date: 01/23/25 Alcohol intake: former Substance use: never Substance use type: does not use Lack of Transportation: No Lack of Food: Never True Current Housing: Decline to Answer Concerned About Future Housing: Decline to Answer Difficulty Paying Gas/Electric Bills: Decline to Answer Difficulty Paying for Meds: Decline to Answer Currently Unemployed: Decline to Answer Education: Decline to Answer Difficulty w/ Childcare or Family Care: Decline to Answer Gender identity (if verbalized by the patient): Male Sexual Orientation (if Verbalized by the Patient): Straight or Heterosexual Spiritual care concerns: No Agree to blood products: Yes Exam 2 Narrative: GENERAL: Well-appearing, well-nourished, and in no acute distress. HEAD: Normocephalic, atraumatic. EYES: EOMI. ENT: Nares clear, no rhinorrhea or epistaxis. Mucous membranes moist. Oropharynx without tonsillar hypertrophy exudate or other lesions. NECK: Supple. No adenopathy or masses. No JVD CHEST: Clear to auscultation. No respiratory distress. No wheezes rales or rhonchi HEART: Regular rate and rhythm. No murmur heard. Normal peripheral pulses. EXTREMITIES: Normal range of motion. Very mild nonpitting edema to the bilateral lower extremities. Normal DP pulses SKIN: Warm, dry, no rash. NEURO: No focal deficits. Alert and oriented x3. PSYCH: Normal mood and affect Course Vital Signs Vital signs: Vital Signs Temperature 98.2 F 05/18/25 13:52 Pulse Rate 80 05/18/25 13:52 Respiratory Rate 16 05/18/25 13:52 Blood Pressure 106/77 05/18/25 13:52 Pulse Oximetry 96 05/18/25 13:52 Temperature 98.2 F 05/18/25 13:52 Pulse Rate 80 05/18/25 13:52 Respiratory Rate 16 05/18/25 13:52 Blood Pressure 106/77 05/18/25 13:52 Pulse Oximetry 96 05/18/25 13:52 [facility] Narrative Medical decision making narrative: Patient presents to the emergency department for lower extremity edema. Mild nonpitting edema noted. No overlying redness. He denies chest pain or shortness of breath. He is afebrile. CBC and metabolic panel without concerning findings. BNP is not elevated. EKG showing sinus rhythm. Chest x- ray with atelectasis. Ultrasound venous Doppler without evidence of DVT. Patient updated on his workup, instructed on further follow-up with PCP Differential Diagnosis Differential Diagnosis: Venous stasis, CHF, DVT Lab Data [facility] Lab Attestation statement: I personally reviewed the patient's lab results. 05/18/25 17:47 05/18/25 17:47 Labs: Lab Results 05/18/25 Range/Units 17:47 WBC 8.7 (4.5-10.0) K/mm3 RBC 4.86 (4.6-6.20) M/mm3 Hgb 15.1 (14.0-18.0) g/dL Hct 45.0 (42.0-52.0) % MCV 92.6 (80-100) fl MCH 31.1 (26-34) pg MCHC 33.6 (32-36) g/dl RDW 13.0 (11.5-14.5) % Plt Count 265 (150-375) k/mm3 MPV 10.4 (7.4-10.4) fl Immature Gran % (Auto) 0.5 (0-0.5) % Neut % (Auto) 59.7 (45.5-73.1) % Lymph % (Auto) 22.4 (18.3-44.2) % [place] % (Auto) 12.3 H (2.6-8.5) % Eos % (Auto) 4.5 H (0-4.4) % Baso % (Auto) 0.6 (0.2-1.2) % Lymph # (Auto) 1.94 (0.9-3.2) K/mm3 [place] # (Auto) 1.1 H (0.1-0.6) K/mm3 Eos # (Auto) 0.4 H (0-0.3) K/mm3 Baso # (Auto) 0.1 (0.0-0.1) K/mm3 Abs Immat Gran (auto) 0.04 H (0.00-0.031) K/mm3 Absolute Neuts (auto) 5.2 (1.3-6.7) K/mm3 Absolute Nucleated RBC 0.000 (0.0-0.012) K/mm3 Nucleated RBC % 0.0 (0.0-0.2) % PT 13.5 (11.1-14.7) Seconds INR 1.0 APTT 34.3 (22.3-36.8) Seconds Sodium 136 L (137-145) mmol/L Potassium 4.2 (3.4-5.0) mmol/L Chloride 101 (98-107) mmol/L Carbon Dioxide 27 (22-30) mmol/L Anion Gap 8 (4-12) mmol/L BUN 19 (9-20) mg/dL Creatinine 1.10 (0.7-1.3) mg/dL Estim Creat Clear Calc 72 ml/min Estimated GFR > 60 (59 - ) Glucose 95 (65-110) mg/dL Calcium 9.0 (8.4-10.2) mg/dL Total Bilirubin 1.2 (0.2-1.3) mg/dL AST 33 (17-59) U/L ALT 25 (6-50) U/L Alkaline Phosphatase 78 (38-126) U/L NT-Pro-B Natriuret Pep 91 (19.9-100) pg/mL Total Protein 7.8 (6.3-8.2) g/dL Albumin 4.4 (3.5-5.1) g/dL Imaging Data Radiologist's impression: ITS Impressions Chest X-Ray 05/18/25 18:01 Impression: 1: Left basilar atelectasis. Venous Doppler Study 05/18/25 19:04 IMPRESSION: 1: No lower extremity deep venous thrombosis. ECG Data EKG #1: ECG completion date: 05/18/25 normal rate, sinus rhythm, no ST changes and normal QT Critical Care Time Critical Care Time Critical Care Time: No Discharge Plan Discharge Clinical Impression: Bilateral edema of lower extremity Patient Disposition: Home Condition: Stable Instructions: Leg Edema (ED) Additional Instructions: Return to the emergency department if you experience fever, redness and swelling of your legs, chest pain, shortness of breath, or any other symptoms that are concerning to you Your blood work and imaging are reassuring here Wear compression stockings. Elevate your legs while seated. Continue hydrochlorothiazide Follow-up with your primary care provider for further management Patient Language: Yoruba Prescriptions: No Action fluticasone propionate [Flonase Allergy Relief] 50 mcg/actuation spray,suspension 1 - 2 spray NASAL DAILY PRN (Reason: nasal congestion) Qty: 48 0RF Rx Instructions: administer into each nostril clopidogrel 75 mg tablet 75 mg PO DAILY Qty: 90 2RF metoprolol succinate 25 mg tablet extended release 24 hr 25 mg PO DAILY Qty: 90 2RF amlodipine 10 mg tablet See Rx Instructions .ROUTE .COMPLEX Qty: 90 2RF Dose Instruction: Take 1 tablet by mouth once daily Rx Instructions: Take 1 tablet by mouth once daily atorvastatin [Lipitor] 80 mg tablet 80 mg PO DAILY Qty: 90 2RF hydrochlorothiazide 25 mg tablet See Rx Instructions .ROUTE .COMPLEX Qty: 90 2RF Dose Instruction: Take 1 tablet by mouth once daily Rx Instructions: Take 1 tablet by mouth once daily lisinopril 2.5 mg tablet 2.5 mg PO DAILY Qty: 90 2RF montelukast 10 mg tablet 10 mg PO QAM Qty: 90 2RF ibuprofen 800 mg tablet See Rx Instructions .ROUTE .COMPLEX Qty: 90 2RF Dose Instruction: Take 1 tablet by mouth twice daily with food Rx Instructions: Take 1 tablet by mouth twice daily with food meclizine 25 mg tablet See Rx Instructions .ROUTE .COMPLEX Qty: 90 2RF Dose Instruction: TAKE 1 TABLET BY MOUTH EVERY 8 HOURS Rx Instructions: TAKE 1 TABLET BY MOUTH EVERY 8 HOURS albuterol sulfate [ProAir HFA] 90 mcg/actuation HFA aerosol inhaler 2 puff INHALATION Q4H PRN (Reason: shortness of breath or wheezing) acetaminophen 325 mg capsule 650 mg PO Q4H PRN (Reason: pain) Rx Instructions: PAIN 1-3 aspirin 81 mg tablet,delayed release (DR/EC) 81 mg PO DAILY tamsulosin 0.4 mg capsule See Rx Instructions .ROUTE .COMPLEX Qty: 30 0RF Dose Instruction: Take 1 capsule by mouth once daily Rx Instructions: Take 1 capsule by mouth once daily divalproex [Depakote ER] 500 mg tablet extended release 24 hr 500 mg PO BID PRN (Reason: headache) Qty: 20 0RF ondansetron 4 mg tablet,disintegrating 4 mg PO Q6H PRN (Reason: nausea and vomiting) Qty: 20 0RF Follow-up/Referrals: Gunner Wilson MD [Primary Care Provider, Internal Medicine]
--- OUTSIDE RECORDS SUMMARY | 2025-05-18 17:38 | XMS_ITS | Clinical Summary ---
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
[2025-05-18 17:57] LABS: Hematocrit 45.0 % (42.0-52.0); Hemoglobin 15.1 g/dL (14.0-18.0); Immature Granulocyte Percent A 0.5 % (0-0.5); Lymphocytes Absolute Auto 1.94 K/mm3 (0.9-3.2); Mean Corpuscular HGB Conc 33.6 g/dl (32-36); Mean Corpuscular Hemoglobin 31.1 pg (26-34); Mean Corpuscular Volume 92.6 fl (80-100); Nucleated Red Blood Cells Absolute Auto 0.000 K/mm3 (0.0-0.012); Nucleated Red Blood Cells Perc 0.0 % (0.0-0.2); Platelet Count Result 265 k/mm3 (150-375); Red Blood Count 4.86 M/mm3 (4.6-6.20); White Blood Count 8.7 K/mm3 (4.5-10.0)
[2025-05-18 18:10] LABS: Alanine Aminotransferase 25 U/L (6-50); Albumin Level 4.4 g/dL (3.5-5.1); Alkaline Phosphatase 78 U/L (38-126); Anion Gap 8 mmol/L (4-12); Aspartate Amino Transferase 33 U/L (17-59); Bilirubin,Total 1.2 mg/dL (0.2-1.3); Blood Urea Nitrogen 19 mg/dL (9-20); Calcium 9.0 mg/dL (8.4-10.2); Carbon Dioxide 27 mmol/L (22-30); Chloride 101 mmol/L (98-107); Estimated CRCL calculation 72 ml/min; Estimated Glomerular Filt Rate > 60; Glucose 95 mg/dL (65-110); Potassium 4.2 mmol/L (3.4-5.0); Sodium 136 mmol/L (137-145); Total Protein 7.8 g/dL (6.3-8.2)
[2025-05-18 18:12] LABS: INR 1.0; Prothrombin Time 13.5 Seconds (11.1-14.7)
[2025-05-18 18:13] LABS: Partial Thromboplastin Time 34.3 Seconds (22.3-36.8)
[2025-05-18 18:19] LABS: NT Pro B Type Natriuretic Pept 91 pg/mL (19.9-100)
[2025-05-18 19:51] VITALS: BP 110/74; PULSE 77; RESP 20; TEMP 36.4; O2SAT 96
== END 2025-05-18 19:59 | disposition home or self-care (01) ==
PROVIDERS: Emergency Provider Physician Assistant; PCP Emergency Medicine
DX: R60.0 Localized edema (principal); Z87.891 Personal history of nicotine dependence; Z79.899 Other long term (current) drug therapy
CPT/HCPCS: 36415; 71046; 80053; 83880; 85025; 85610; 85730; 93005; 93970; 99284